=== PATIENT | male | born 1945 | race Caucasian/White ===

== ENCOUNTER → 2016-05-06 | Day surgery (SDC) | payer OTHER, MEDICARE ==
[2016-04-27 15:28] LABS: BASO % 0.6 %; BASO ABS # 0.06 K/uL (0-0.2); COMPLETE YES; EOS % 1.9 %; HEMATOCRIT 47.1 % (42-52); IG% 0.4 %; LYMPH % 31.7 %; MEAN CELL VOLUME 93.6 fL (80-100); MEAN CORPUSCULAR HEMOGLOBIN 31.8 pg (25-34); MEAN PLATELET VOLUME 9.8 fL (7.4-10.4); MONO % 11.9 %; NEUT % 53.5 %; PLATELET COUNT 308 K/uL (130-400); RED BLOOD COUNT 5.03 M/uL (4.7-6.1); WHITE BLOOD COUNT 10.73 K/uL (4.8-10.8)
[2016-04-27 16:08] LABS: BLOOD UREA NITROGEN 10 mg/dl (7-18); CALCIUM 9.4 mg/dl (8.5-10.1); CARBON DIOXIDE 27 mmol/L (21-32); CHLORIDE 103 mmol/L (98-107); CREATININE 0.98 mg/dl (0.60-1.40); GLUCOSE 135 mg/dl (70-99); SODIUM 138 mmol/L (136-145)
[~2016-05-06] VITALS: Ht 177.8 cm; Wt 95.0 kg
[~2016-05-06] MED LIST: ACET-1138 PO; ALBUAER2 INH; ASPI81TA28 PO; CIPROFLOXACIN / D5W 400 MG IV SCH; EpHEDrine SULFATE INJ 50 MG/ML AMP ONE; FENTANYL CITRATE INJ 50 MCG/1 ML 2 ML VIAL IV PRN; FENTANYL CITRATE INJ 50 MCG/1 ML 2 ML VIAL ONE; FLUT0.15 INTNAS; GLC/500 PO; GLIP-197 PO; LACTATED RINGER'S 1000ML 1,000 ML IV PRN; LIDOCAINE HCL 2% 2 ML VIAL (20MG/ML) ONE; LOSA50TA6 PO; MIDAZOLAM HCL 1 MG/ML 2ML VIAL ONE; ONDANSETRON INJ 2 MG/ML 2 ML VIAL IV PRN; ONDANSETRON INJ 2 MG/ML 2 ML VIAL ONE; PRLSR20 PO; PROPOFOL IV EMULSION 10 MG/ML 20 ML VIAL IV ONE; ROSU40TA PO; TAMS0.4C38 PO; WATER, STERILE FOR INJ 10 ML VIAL ONE
[2016-05-06 05:41] VITALS: BP 123/73; PULSE 68; TEMP 36.7; O2SAT 96; Ht 177.8 cm; Wt 95.0 kg
--- NOTE | 2016-05-06 07:15 | History & Physical Bridge Note ---
H&P Re-Evaluation Bridge Note: I have examined the patient, reviewed the History & Physical and in the interval since the performance of the History & Physical I have noted the following changes of clinical significance: No changes noted
--- NOTE | 2016-05-06 08:15 | Discharge Instructions ---
Discharge Instructions Date of Service May 06, 2016. Visit Reason for Visit: Bladder Cancer C67.9 Discharge Discharge Diagnosis / Problem: post op bladder biopsy annd fulguration Discharge Goals Goal(s): Increase independence, Improve disease control, Diagnostic testing Activity Recommendations Activity Limitations: per Instructions/Follow-up section (light activity next 4 weeks) Anesthesia . Post Anesthesia Instructions: If you have had General Anesthesia or IV Sedation: * Do not drive today. * Resume driving when surgeon permits. * Do not make important decisions or sign legal documents today. * Call surgeon for: 1. Temperature elevations greater than 101 degrees F. 2. Uncontrollable pain. 3. Excessive bleeding. 4. Persistent nausea and vomiting. 5. Medication intolerance (nausea, vomiting or rash). * For nausea and vomiting use only clear liquids such as: tea, soda, bouillon until nausea subsides, then gradually increase diet as tolerated. * If you have any concerns or questions, call your surgeon's office. If physician is unavailable and it is an emergency, call 911 or go to the nearest emergency room. . Diet Recommendations Recommended Home Diet: resume previous diet Procedures Procedures Performed: transurethral resection of bladder tumor Pending Studies Studies pending at discharge: no Medical Emergencies . Who to Call and When: Medical Emergencies: If at any time you feel your situation is an emergency, please call 911 immediately. . Non-Emergent Contact Non-Emergency issues call your: Urologist Contact Number: [phone] Call Non-Emergent contact if: temperature is above 101 . . "Provider Documentation" section prepared by Chidi Wing.
--- NOTE | 2016-05-06 08:47 | Anesthesiology Progress Note ---
Anesthesia Post Op Note Date & Time May 06, 2016 at 08:47 Vital Signs Pain Intensity: 0 Vital Signs Past 12 Hours Date Time Temp Pulse Resp B/P Pulse Ox O2 Delivery O2 Flow Rate FiO2 05/06/16 08:40 74 16 112/61 95 Room Air 05/06/16 08:30 71 13 104/62 100 Mask 10 05/06/16 08:20 78 15 108/70 98 Mask 10 05/06/16 08:14 36.3 73 17 107/66 100 Mask 10 05/06/16 05:41 36.7 68 18 123/73 96 Room Air Notes Mental Status: alert / awake / arousable, participated in evaluation Pt Amnestic to Procedure: Yes Nausea / Vomiting: adequately controlled Pain: adequately controlled Airway Patency, RR, SpO2: stable & adequate BP & HR: stable & adequate Hydration State: stable & adequate Anesthetic Complications: no major complications apparent Pt doing well.
[2016-05-06 09:20] VITALS: BP 114/58; PULSE 70; TEMP 36.4; O2SAT 95
[2016-05-06 09:50] VITALS: BP 114/66; PULSE 81; TEMP 36.4; O2SAT 95
--- NOTE | 2016-05-06 12:10 | [facility] Post Operative Brief Note ---
Immediate Operative Summary Operative Date May 06, 2016. Pre-Operative Diagnosis benign prostatic hyperplasia with urinary obstruction, primary transitional cell carcinoma of bladder Post-Operative Diagnosis benign prostatic hyperplasia with urinary obstruction, primary transitional cell carcinoma of bladder Procedure(s) Performed transurethral resection of bladder tumor Surgeon Dr Chidi Wing Back Seam Stitcher Surgeon(s) none Estimated Blood Loss 5ML Specimens A: left anterior lateral wall of bladder papillary B: left anterior lateral wall of bladder red area C: right wall lateral to trigon D: right lateral wall Drains none
--- NOTE | 2016-05-06 23:05 | OPERATIVE REPORT ---
DATE OF OPERATION: 05/06/2016 PREOPERATIVE DIAGNOSIS: Recurrent bladder cancer. POSTOPERATIVE DIAGNOSIS: Same. SURGEON: Dr. Wing. ANESTHESIA: General. PROCEDURE: Cystoscopy, bladder biopsy over medium surface area. HISTORY OF PRESENTATION: The patient is a 71-year-old male with a previous history of bladder cancer that has been ongoing for years. He did have what appeared to be a hole to his bladder that communicated with the perivesical fat and was resected with an open surgery at [facility], who presents now for tumor resection after surveillance cystoscopy in the office. Post the surgery shows several small recurrent tumors. DESCRIPTION OF THE PROCEDURE: The patient was taken to the operating room after he was given preoperative antibiotics and had Venodyne stockings placed, was given general anesthesia, placed in dorsal lithotomy position and prepped and draped in the usual sterile fashion. The 20-Tamazight cystoscope was passed per urethra and once inside the bladder, multiple cup biopsies of the bladder tumors were obtained and all the tumor surface areas were fulgurated and the tumors came from the left anterior lateral wall of the bladder, left anterior lateral wall, trigone area of the bladder, and several smaller areas with papillary tumors were fulgurated without biopsies. Total surface area was 2-3 cm of area fulgurated with tumor. At the end of the procedure, the patient was transferred to the recovery room in stable condition. I attest to the content of the Intraoperative Record and any orders documented therein. Any exceptions are noted below. MTDD
== END | disposition home or self-care (01) ==
LOC: C.ACU 05:12
PROVIDERS: ATTEND Urology
DX: D30.3 Benign neoplasm of bladder (principal); Z85.51 Personal history of malignant neoplasm of bladder; N40.1 Benign prostatic hyperplasia with lower urinary tract symptoms; N13.8 Other obstructive and reflux uropathy; A31.9 Mycobacterial infection, unspecified; I10 Essential (primary) hypertension; N21.0 Calculus in bladder; K22.70 Barrett's esophagus without dysplasia; N30.20 Other chronic cystitis without hematuria; E11.9 Type 2 diabetes mellitus without complications

== ENCOUNTER → 2016-12-23 | Outpatient (CLI) | payer OTHER, MEDICARE ==
[~2016-12-23] MED LIST changes: -CIPROFLOXACIN / D5W 400 MG IV SCH; -EpHEDrine SULFATE INJ 50 MG/ML AMP ONE; -FENTANYL CITRATE INJ 50 MCG/1 ML 2 ML VIAL IV PRN; -FENTANYL CITRATE INJ 50 MCG/1 ML 2 ML VIAL ONE; -LACTATED RINGER'S 1000ML 1,000 ML IV PRN; -LIDOCAINE HCL 2% 2 ML VIAL (20MG/ML) ONE; -MIDAZOLAM HCL 1 MG/ML 2ML VIAL ONE; -ONDANSETRON INJ 2 MG/ML 2 ML VIAL IV PRN; -ONDANSETRON INJ 2 MG/ML 2 ML VIAL ONE; -PROPOFOL IV EMULSION 10 MG/ML 20 ML VIAL IV ONE; -WATER, STERILE FOR INJ 10 ML VIAL ONE
--- NOTE | 2016-12-23 14:12 | DIAGNOSTIC IMAGING REPORT ---
MRI LUMBAR SPINE WITHOUT IV CONTRAST CLINICAL HISTORY: Chronic low back pain. COMPARISON STUDY: Radiographs of the lumbar spine dated 12/15/2016. TECHNIQUE: MRI of the lumbar spine is performed utilizing various T1 and T2-weighted sequences in the axial and sagittal planes. IV contrast was not administered for this examination. FINDINGS: Lumbar spine: Vertebral body height is maintained throughout the lumbar spine. Minimal retrolisthesis is seen at L2-L3 and L3-L4. Alignment is otherwise preserved. There is straightening of the lumbar lordosis. Mild scoliosis is noted. Anterior osteophytes are present throughout. There is no evidence of spondylolysis. The transverse and spinous processes appear intact. No destructive bony lesion is seen. Marrow signal intensity is markedly heterogeneous. Advanced chronic multilevel degenerative endplate change is observed. Intervertebral discs: There is degenerative disc desiccation and loss of height throughout the lumbar spine. Loss of height is moderate to severe from L1 to L2 through L4 to L5. Spinal cord: The partially imaged spinal cord is normal in morphology and signal intensity. The conus medullaris terminates at the level of L2. The nerve roots of the cauda equina are normal in morphology. T12-L1: There is a large posterior disc bulge with annular fissure. In conjunction with hypertrophy of the ligamentum flavum, there is mild to moderate acquired compromise of the central canal at this level. The minimum AP diameter measures 7.5 mm. This is only seen on the sagittal series. L1-L2: There is a posterior disc osteophyte complex. This causes mild central canal stenosis at this level with a minimum AP diameter of 7.5 mm. There is bilateral subarticular stenosis with possible impingement on the exiting bilateral L1 nerve roots. This also abuts the transiting bilateral nerve roots. L2-L3: There is a posterior disc osteophyte complex with annular fissure. There is no significant acquired compromise of the central canal at this level. There is bilateral subarticular stenosis with possible impingement on the exiting bilateral L2 nerve roots. This also abuts the bilateral transiting nerve roots. Facet arthropathy is of no consequence. The neural foramina are clear. L3-L4: A large posterior disc bulge is seen at this level. In conjunction with hypertrophy of the ligamentum flavum, there is moderate central canal stenosis at this level with a minimum AP diameter of 7 mm. There is bilateral subarticular stenosis, with impingement on the exiting bilateral L3 nerve roots. The disc bulge also abuts the bilateral transiting nerve roots. Facet arthropathy is of no consequence. The neural foramina are clear. L4-L5: There is a posterior disc osteophyte complex. There is no significant acquired compromise of the central canal at this level. Facet arthropathy causes mild bilateral neural foraminal stenosis. There is bilateral subarticular stenosis, right greater than left. L5-S1: There is a small posterior disc bulge eccentric to the right with annular fissure. There is only mild acquired compromise of the central canal at this level with a minimum AP diameter of 7.5 mm. There is bilateral subarticular stenosis, right greater than left with possible impingement on the exiting right L5 and transiting right S1 nerve roots. Sacrum: The visualized sacrum is normal in morphology and signal intensity. Soft tissues: There is fatty atrophy of the paraspinous and iliopsoas musculature. Mild ectasia is noted in the abdominal aorta. The bladder wall appears thickened and trabeculated suggesting chronic outlet obstruction. IMPRESSION: 1. Moderate to advanced multilevel lumbosacral spondylosis and scoliosis as above. There is multilevel acquired compromise of the central canal. See discussion for detailed level analysis. 2. Advanced degenerative endplate disease with multilevel degenerative endplate change. 3. No destructive bony lesion is identified. Dictated: 12/23/2016 1:41 PM Transcribed: 12/23/2016 2:11 PM Lc Electronically signed by: Gavin Greco M.D. 12/23/2016 2:23 PM Dictated Date/Time: 12/23/2016 1:41 PM
== END | disposition home or self-care (01) ==
LOC: C.MRIBC 12:36
PROVIDERS: ATTEND Orthopaedic Surgery Orthopaedic Surgery of the Spine
DX: M48.061 Spinal stenosis, lumbar region without neurogenic claudication (principal); M51.26 Other intervertebral disc displacement, lumbar region; M47.896 Other spondylosis, lumbar region; M41.9 Scoliosis, unspecified

== ENCOUNTER → 2017-05-24 | Outpatient (CLI) | payer OTHER, MEDICARE | END | disposition home or self-care (01) | LOC: C.LABSPEC 17:20 | PROVIDERS: ATTEND Urology | DX: R97.20 Elevated prostate specific antigen [PSA] (principal) ==

== ENCOUNTER → 2017-10-18 | Outpatient (CLI) | payer OTHER, MEDICARE | END | disposition home or self-care (01) | LOC: C.PATHSPEC 17:24 | PROVIDERS: ATTEND Urology | DX: C67.9 Malignant neoplasm of bladder, unspecified (principal) ==

== ENCOUNTER 2025-02-06 08:50 | Inpatient (IN) ==
[2025-02-06 09:41] LABS: Hematocrit (blood only) 45.4 % (42.0-52.0); Hemoglobin 15.5 g/dL (14.0-18.0); Immature Granulocytes # (auto) 0.05 K/uL (0.01-0.20); Immature Granulocytes % (auto) 0.4 %; Mean Corpuscular Hemoglobin 34.3 pg (25.0-34.0); Mean Corpuscular Volume 100.4 fL (80.0-100.0); Platelet Count 196 K/uL (130-400); RDW Standard Deviation 59.3 fL (36.4-46.3); Red Blood Count 4.52 M/uL (4.70-6.10); White Blood Count 11.83 K/ul (4.8-10.8)
--- NOTE | 2025-02-06 09:44 | XRay Report ---
SINGLE VIEW CHEST CLINICAL HISTORY: Chest pain FINDINGS: 2 AP, portable, upright chest radiographs are compared to study dated 09/10/2022. Correlatio n is made to abdominal CT dated 12/27/2024. The heart is enlarged. There is pulmonary vascular conges tion. There are asymmetric multifocal bilateral airspace opacities. This could represent pulmonary ed stephanie and/or multifocal pneumonia. This is superimposed on changes of chronic interstitial lung disease . No large pleural effusion or pneumothorax is seen. The skeletal structures are osteopenic. The bony thorax is grossly intact. Arthritic change is seen in the shoulders. Calcific tendinopathy is noted on the right. IMPRESSION: 1. Cardiomegaly with evidence of congestive failure. 2. There are multifocal asymmetric bilateral airspace opacities. This could represent pulmonary edema and/or multifocal pneumonia. Clinical correlation will be required and radiographic follow-up to res olution is recommended. 3. This is superimposed on changes of chronic interstitial lung disease. 4. No large pleural effusion is identified. ACT 112: Negative or not required by law. Electronically signed by: Gavin Greco M.D. 02/06/2025 9:43 AM
[2025-02-06 09:58] LABS: Alanine Aminotransferase 18.0 U/L (7-52); Albumin Globulin Ratio 1.2 (0.9-2); Albumin Level 4.5 gm/dl (3.4-5.0); Alkaline Phosphatase 70.0 U/L (34-104); Anion Gap 13.0 (3-11); Bilirubin,Total 1.3 mg/dl (0.2-1.0); Blood Urea Nitrogen 19.0 mg/dl (6-23); Calcium 9.5 mg/dl (8.6-10.3); Carbon Dioxide 24.0 mmol/L (21-32); Chloride 102.0 mmol/L (98-107); Creatinine Clr Calc Pharmacy 99.7 ml/min; Globulin 3.8 gm/dl (2.5-4.0); Glucose 165.0 mg/dl (70-99(Fasting)); Lipase 8.0 U/L (11-82); Potassium 4.5 mmol/L (3.5-5.1); Sodium 139.0 mmol/L (136-145); Total Protein 8.3 gm/dl (6.0-8.3)
[2025-02-06 10:09] LABS: INR 1.0 (0.9-1.1); Prothrombin Time 10.4 Seconds (9.0-12.0)
--- NOTE | 2025-02-06 10:33 | Emergency Department Note ---
Impression & Plan Acute respiratory failure with hypoxia, Interstitial lung disease, Multifocal pneumonia ED Provider Note NAME: GHADA ALFARO AGE: 79 SEX: M : 1945 ARRIVES VIA: Walk-In INFORMANT: Patient ED PROVIDER(S): Moose Washington MD CHIEF COMPLAINT: Shortness of breath, interstitial lung disease PLAN: Disposition: Admit MEDICAL DECISION MAKING: The patient is a pleasant 79-year-old gentleman with a past medical history of interstitial lung disease, BPH, history of splenectomy who presents to the emergency department via walk-in for evaluation of worsening shortness of breath over the past week where he he has felt body aches but denies fevers. He denies nausea or vomiting. He reports brown productive sputum. On my evaluation the patient is fatigued appearing but no acute distress, afebrile with O2 saturation 88% on room air improving to the mid 90s on nasal cannula, respiratory rate in the upper 20s and 130s heart rate prior to nasal cannula. Vital signs otherwise stable. He appears euvolemic to dry. Lungs with intermittent wheeze of bilateral mid to lower lung diaz. EKG without overt acute ischemia. Chest x-ray demonstrates congestive change where multifocal bilateral airspace opacities are described though asymmetric and so may represent pulmonary edema but also multifocal pneumonia. Superimposed changes of chronic interstitial lung disease are noted. WBC 11.8 K with neutrophilia but no left shift, nonspecific. H/H and plates within normal limits. Chemistry without metabolic acidosis. Lactic acid 1.3, within normal limits. Total bilirubin 1.3, nonspecific LFTs otherwise normal. High-sensitivity troponin 25.4, mildly above normal and nonspecific. BNP 391 without prior values for comparison. Unclear if may have a component of pulmonary hypertension in the setting of the patient's interstitial lung disease. Lipase is not elevated. Procalcitonin is not elevated. UA with 2+ ketones and otherwise no evidence of infection. Given suspicion for component of pneumonia blood cultures obtained empiric treatment initiated with IV ceftriaxone and doxycycline. Additional Solu-Medrol and Xopenex administered for component of bronchospasm in setting of interstitial lung disease. Patient agreed does agree with plan for admission for further management. Case was discussed with Grace Zee PAC with Dr. Shirley, [facility] hospitalist, who will evaluate the patient for admission. Further management per admitting team. Triage Nursing notes reviewed and agree them. Prior/external medical records reviewed Vital Signs: reviewed Differential diagnosis: Reactive airway disease, pneumonia, pneumothorax, COPD, CHF, infections, cardiac ischemia, pulmonary embolism, musculoskeletal, gastrointestinal, as well as other pathologies. ER treatment provided: See below. Diagnostics interpreted by me: ECG: Sinus tachycardia, 127 bpm, right bundle branch block, left anterior fascicular block, no overt ST elevation or depression, QTc 529, QRS 154. Cardiac Monitoring: An order for continuous cardiac monitoring was placed and demonstrated sinus tachycardia, 127 bpm, no ectopy. Laboratory studies: See below Imaging studies: See below Consultation(s): [facility] with Dr. Shirley, [facility] hospitalist, who will evaluate the patient for admission. HPI: Per MDM. ROS: See above HPI for pertinent positives & negatives. A total of 10 systems reviewed and were otherwise negative. VITALS:See Below PHYSICAL EXAMINATION: GENERAL: Awake, alert, fatigued-appearing, in no distress HENT: Normocephalic, atraumatic. Oropharynx with dry mucous membranes and otherwise unremarkable. EYES: Normal conjunctiva. Sclera non-icteric. NECK: Supple. No nuchal rigidity. FROM. No JVD. RESPIRATORY: Wheezes of bilateral lower lung diaz and otherwise clear to auscultation. CARDIAC: Tachycardic rate, normal rhythm. Extremities warm and well perfused. Pulses equal. ABDOMEN: Soft, non-distended. No tenderness to palpation. No rebound or guarding. No masses. MUSCULOSKELETAL: Chest examination reveals no tenderness. The back is symmetrical on inspection without obvious abnormality. There is no CVA tenderness to palpation. No joint edema. LOWER EXTREMITIES: Calves are equal size bilaterally and non-tender. No edema. No discoloration. NEURO: Normal sensorium. No sensory or motor deficits noted. SKIN: No rash or jaundice noted. Moose Washington MD Past Med/Surg History Problem List Severe aortic stenosis Acute diastolic heart failure COPD exacerbation Systolic CHF, acute on chronic Multifocal pneumonia (Acute) Acute respiratory failure with hypoxia (Acute) Diabetes Erectile dysfunction Benign prostatic hyperplasia with urinary obstruction and other lower urinary tract symptoms (Acute) Calculus of kidney and ureter (Acute) Chronic prostatitis (Acute) Elevated PSA (Acute) History of nephrolithiasis (Acute) Primary transitional cell carcinoma of bladder (Acute) Recurrent bladder transitional cell carcinoma (Acute) BPH with obstruction/lower urinary tract symptoms Transitional cell bladder cancer Interstitial lung disease (Acute) Post-operative state Social History Smoking Status: Former smoker Hx Alcohol Use: No Hx Substance Use: No 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 Beliefs That Will Affect Care: None Current Living Situation: Alone Current Living Situation Comment: pt lives alone Feels Safe at Home: Yes Assistive Devices: Glasses Allergies Allergies Allergy/AdvReac Type Severity Reaction Status Date / Time No Known Allergies Allergy Verified 01/26/22 09:59 Home Meds Home Medications Medication Instructions Recorded Confirmed aspirin 81 mg tablet,delayed 81 mg PO DAILY 04/20/18 02/06/25 release metformin 500 mg tablet 1,000 mg PO BID 04/20/18 02/06/25 (Glucophage) rosuvastatin 20 mg tablet (Crestor) 20 mg PO DAILY 04/20/18 02/06/25 Jardiance 10 mg PO DAILY 02/06/25 02/06/25 glipizide 5 mg PO DAILY 02/06/25 02/06/25 losartan 25 mg PO DAILY 02/06/25 02/06/25 omeprazole 20 mg PO DAILY 02/06/25 02/06/25 Previous Rx's Medication Instructions Recorded finasteride 5 mg tablet 5 mg PO DAILY #90 tabs 06/02/21 Results & Data (ED) Vital Signs Vital Signs - 24 hr 02/06/25 08:59 02/06/25 09:10 02/06/25 09:16 Temperature 36.0 C L Temperature Source Skin Pulse Rate 130 H Pulse Rate [Apical] Pulse Rhythm Pulse Rhythm [Apical] Pulse Strength [Apical] Respiratory Rate 28 H Respiratory Effort / Characteristics Non-Labored Spontaneous Non-Labored Spontaneous Respiratory Depth Normal Normal Respiratory Pattern Tachypnea Regular Blood Pressure 131/88 Blood Pressure [Left Arm] Blood Pressure Mean 102 Blood Pressure Mean [Left Arm] Blood Pressure Position [Left Arm] Pulse Oximetry 88 L 88 L Oxygen Delivery Method Room Air Nasal Cannula Nasal Cannula Oxygen Flow Rate 3 0 Sepsis Recent Fever Within 48 Hours No Sepsis New/Unexplained Change in Mental Status N/A Sepsis Action Taken by Nursing No Action Required Oxygen Flow Rate - Titration 3 Pulse Oximetry Post Tiitration 95 02/06/25 09:16 02/06/25 09:16 02/06/25 09:41 Temperature Temperature Source Pulse Rate 128 H 127 H Pulse Rate [Apical] 129 H Pulse Rhythm Regular Pulse Rhythm [Apical] Regular Pulse Strength [Apical] Normal Respiratory Rate 24 27 H Respiratory Effort / Characteristics Non-Labored Spontaneous Respiratory Depth Normal Respiratory Pattern Regular Blood Pressure Blood Pressure [Left Arm] 111/80 Blood Pressure Mean Blood Pressure Mean [Left Arm] 90 Blood Pressure Position [Left Arm] Lying Pulse Oximetry 95 95 Oxygen Delivery Method Nasal Cannula Nasal Cannula Oxygen Flow Rate 3 3 Sepsis Recent Fever Within 48 Hours Sepsis New/Unexplained Change in Mental Status Sepsis Action Taken by Nursing Oxygen Flow Rate - Titration Pulse Oximetry Post Tiitration 02/06/25 11:00 Temperature Temperature Source Pulse Rate Pulse Rate [Apical] 126 H Pulse Rhythm Pulse Rhythm [Apical] Regular Pulse Strength [Apical] Normal Respiratory Rate 21 Respiratory Effort / Characteristics Non-Labored Spontaneous Respiratory Depth Normal Respiratory Pattern Regular Blood Pressure Blood Pressure [Left Arm] 125/81 Blood Pressure Mean Blood Pressure Mean [Left Arm] 95 Blood Pressure Position [Left Arm] Sitting Pulse Oximetry 94 Oxygen Delivery Method Nasal Cannula Oxygen Flow Rate 3 Sepsis Recent Fever Within 48 Hours Sepsis New/Unexplained Change in Mental Status Sepsis Action Taken by Nursing Oxygen Flow Rate - Titration Pulse Oximetry Post Tiitration Laboratory Data Attestation: I reviewed the patient's lab results. 02/06/25 09:15 02/06/25 09:15 Lab Results 02/06/25 02/06/25 02/06/25 Range/Units 09:15 10:49 10:51 WBC 11.83 H (4.8-10.8) K/ul RBC 4.52 L (4.70-6.10) M/uL Hgb 15.5 (14.0-18.0) g/dL Hct 45.4 (42.0-52.0) % MCV 100.4 H (80.0-100.0) fL MCH 34.3 H (25.0-34.0) pg MCHC 34.1 (32.0-36.0) g/dL RDW Std Deviation 59.3 H (36.4-46.3) fL RDW Coeff of Jacqueline 16.0 H (11.5-14.5) % Plt Count 196 (130-400) K/uL MPV 10.3 (9.4-12.4) fL Immature Gran % (Auto) 0.4 % Neut % (Auto) 83.4 % Lymph % (Auto) 7.1 % [place] % (Auto) 8.0 % Eos % (Auto) 0.3 % Baso % (Auto) 0.8 % Neut # (Auto) 9.87 H (1.40-6.50) K/uL Lymph # (Auto) 0.84 L (1.20-3.40) K/uL [place] # (Auto) 0.95 H (0.11-0.59) K/uL Eos # (Auto) 0.03 (0.00-0.50) K/uL Baso # (Auto) 0.09 (0.00-0.20) K/uL Immature Gran # (Auto) 0.05 (0.01-0.20) K/uL ESR 51 H (0-20) mm/hr PT 10.4 (9.0-12.0) Seconds INR 1.0 (0.9-1.1) Sodium 139 (136-145) mmol/L Potassium 4.5 (3.5-5.1) mmol/L Chloride 102 (98-107) mmol/L Carbon Dioxide 24 (21-32) mmol/L Anion Gap 13 H (3-11) BUN 19 (6-23) mg/dl Creatinine 0.73 (0.6-1.4) mg/dl Est Cr Clr Drug Dosing 99.7 ml/min eGFR 93.13 BUN/Creatinine Ratio 26.0 H (10-20) Glucose 165 H (70-99(Fasting)) mg/dl Lactate 1.3 (0.4-2.0) mmol/L Calcium 9.5 (8.6-10.3) mg/dl Magnesium (1.7-2.4) mg/dl Total Bilirubin 1.3 H (0.2-1.0) mg/dl AST 17 (13-39) U/L ALT 18 (7-52) U/L Alkaline Phosphatase 70 (34-104) U/L Troponin I High Sens 25.4 H (0-20) pg/ml C-Reactive Protein (0-0.5) mg/dl B-Natriuretic Peptide 391 H (0-100) pg/ml Total Protein 8.3 (6.0-8.3) gm/dl Albumin 4.5 (3.4-5.0) gm/dl Globulin 3.8 (2.5-4.0) gm/dl Albumin/Globulin Ratio 1.2 (0.9-2) Lipase 8 L (11-82) U/L Procalcitonin 0.04 (0-0.5) ng/ml Urine Color Yellow Urine Appearance Clear (Clear) Urine pH 5.0 (4.5-7.5) Ur Specific [place] 1.036 H (1.000-1.030) Urine Protein 1+ H (Negative) Urine Glucose (UA) 3+ H (Negative) Urine Ketones 2+ H (Negative) Urine Blood Negative (Negative) Urine Nitrite Negative (Negative) Urine Bilirubin Negative (Negative) Urine Urobilinogen Negative (Negative) Ur Leukocyte Esterase Negative (Negative) Urine WBC (Auto) 0-5 (0-5) /hpf Urine RBC (Auto) 0-2 (0-2) /hpf U Hyaline Cast (Auto) 0-2 (0-2) /lpf U Epithel Cells (Auto) 0-2 (0-2) /hpf Urine Bacteria (Auto) None Seen (None Seen) Urine Comment Adenovirus (PCR) (NotDetected) B. pertussis DNA (PCR) (NotDetected) B.parapertussis DNA PCR (NotDetected) C. pneumoniae DNA (PCR) (NotDetected) Coronavirus OC43 (PCR) (NotDetected) Coronavirus HKU1 (PCR) (NotDetected) Coronavirus 229E (PCR) (NotDetected) SARS-CoV-2 (PCR) (Negative) Coronavirus NL63 (PCR) (NotDetected) Human Metapneumovir PCR (NotDetected) Influenza Type A (PCR) (Neg) Influenza Type B (PCR) (Neg) M. pneumoniae (PCR) (NotDetected) Parainfluenza 1 (PCR) (NotDetected) Parainfluenza 2 (PCR) (NotDetected) Parainfluenza 3 (PCR) (NotDetected) Parainfluenza 4 (PCR) (NotDetected) RSV (RT-PCR) (Neg) RSV (PCR) (NotDetected) Entero/Rhino (PCR) (NotDetected) 02/06/25 02/06/25 02/06/25 Range/Units 11:34 11:34 11:34 WBC (4.8-10.8) K/ul RBC (4.70-6.10) M/uL Hgb (14.0-18.0) g/dL Hct (42.0-52.0) % MCV (80.0-100.0) fL MCH (25.0-34.0) pg MCHC (32.0-36.0) g/dL RDW Std Deviation (36.4-46.3) fL RDW Coeff of Jacqueline (11.5-14.5) % Plt Count (130-400) K/uL MPV (9.4-12.4) fL Immature Gran % (Auto) % Neut % (Auto) % Lymph % (Auto) % [place] % (Auto) % Eos % (Auto) % Baso % (Auto) % Neut # (Auto) (1.40-6.50) K/uL Lymph # (Auto) (1.20-3.40) K/uL [place] # (Auto) (0.11-0.59) K/uL Eos # (Auto) (0.00-0.50) K/uL Baso # (Auto) (0.00-0.20) K/uL Immature Gran # (Auto) (0.01-0.20) K/uL ESR (0-20) mm/hr PT (9.0-12.0) Seconds INR (0.9-1.1) Sodium (136-145) mmol/L Potassium (3.5-5.1) mmol/L Chloride (98-107) mmol/L Carbon Dioxide (21-32) mmol/L Anion Gap (3-11) BUN (6-23) mg/dl Creatinine (0.6-1.4) mg/dl Est Cr Clr Drug Dosing ml/min eGFR BUN/Creatinine Ratio (10-20) Glucose (70-99(Fasting)) mg/dl Lactate (0.4-2.0) mmol/L Calcium (8.6-10.3) mg/dl Magnesium (1.7-2.4) mg/dl Total Bilirubin (0.2-1.0) mg/dl AST (13-39) U/L ALT (7-52) U/L Alkaline Phosphatase (34-104) U/L Troponin I High Sens (0-20) pg/ml C-Reactive Protein (0-0.5) mg/dl B-Natriuretic Peptide (0-100) pg/ml Total Protein (6.0-8.3) gm/dl Albumin (3.4-5.0) gm/dl Globulin (2.5-4.0) gm/dl Albumin/Globulin Ratio (0.9-2) Lipase (11-82) U/L Procalcitonin (0-0.5) ng/ml Urine Color Urine Appearance (Clear) Urine pH (4.5-7.5) Ur Specific [place] (1.000-1.030) Urine Protein (Negative) Urine Glucose (UA) (Negative) Urine Ketones (Negative) Urine Blood (Negative) Urine Nitrite (Negative) Urine Bilirubin (Negative) Urine Urobilinogen (Negative) Ur Leukocyte Esterase (Negative) Urine WBC (Auto) (0-5) /hpf Urine RBC (Auto) (0-2) /hpf U Hyaline Cast (Auto) (0-2) /lpf U Epithel Cells (Auto) (0-2) /hpf Urine Bacteria (Auto) (None Seen) Urine Comment Adenovirus (PCR) Not Detected (NotDetected) B. pertussis DNA (PCR) Not Detected (NotDetected) B.parapertussis DNA PCR Not Detected (NotDetected) C. pneumoniae DNA (PCR) Not Detected (NotDetected) Coronavirus OC43 (PCR) Not Detected (NotDetected) Coronavirus HKU1 (PCR) Not Detected (NotDetected) Coronavirus 229E (PCR) Not Detected (NotDetected) SARS-CoV-2 (PCR) NEGATIVE Not Detected (Negative) Coronavirus NL63 (PCR) Not Detected (NotDetected) Human Metapneumovir PCR Not Detected (NotDetected) Influenza Type A (PCR) Negative Not Detected (Neg) Influenza Type B (PCR) Negative (Neg) M. pneumoniae (PCR) (NotDetected) Parainfluenza 1 (PCR) (NotDetected) Parainfluenza 2 (PCR) (NotDetected) Parainfluenza 3 (PCR) (NotDetected) Parainfluenza 4 (PCR) (NotDetected) RSV (RT-PCR) (Neg) RSV (PCR) (NotDetected) Entero/Rhino (PCR) (NotDetected) 02/06/25 02/06/25 Range/Units 11:34 11:44 WBC (4.8-10.8) K/ul RBC (4.70-6.10) M/uL Hgb (14.0-18.0) g/dL Hct (42.0-52.0) % MCV (80.0-100.0) fL MCH (25.0-34.0) pg MCHC (32.0-36.0) g/dL RDW Std Deviation (36.4-46.3) fL RDW Coeff of Jacqueline (11.5-14.5) % Plt Count (130-400) K/uL MPV (9.4-12.4) fL Immature Gran % (Auto) % Neut % (Auto) % Lymph % (Auto) % [place] % (Auto) % Eos % (Auto) % Baso % (Auto) % Neut # (Auto) (1.40-6.50) K/uL Lymph # (Auto) (1.20-3.40) K/uL [place] # (Auto) (0.11-0.59) K/uL Eos # (Auto) (0.00-0.50) K/uL Baso # (Auto) (0.00-0.20) K/uL Immature Gran # (Auto) (0.01-0.20) K/uL ESR (0-20) mm/hr PT (9.0-12.0) Seconds INR (0.9-1.1) Sodium (136-145) mmol/L Potassium (3.5-5.1) mmol/L Chloride (98-107) mmol/L Carbon Dioxide (21-32) mmol/L Anion Gap (3-11) BUN (6-23) mg/dl Creatinine (0.6-1.4) mg/dl Est Cr Clr Drug Dosing ml/min eGFR BUN/Creatinine Ratio (10-20) Glucose (70-99(Fasting)) mg/dl Lactate (0.4-2.0) mmol/L Calcium (8.6-10.3) mg/dl Magnesium 2.0 (1.7-2.4) mg/dl Total Bilirubin (0.2-1.0) mg/dl AST (13-39) U/L ALT (7-52) U/L Alkaline Phosphatase (34-104) U/L Troponin I High Sens 23.6 H (0-20) pg/ml C-Reactive Protein 6.14 H (0-0.5) mg/dl B-Natriuretic Peptide (0-100) pg/ml Total Protein (6.0-8.3) gm/dl Albumin (3.4-5.0) gm/dl Globulin (2.5-4.0) gm/dl Albumin/Globulin Ratio (0.9-2) Lipase (11-82) U/L Procalcitonin (0-0.5) ng/ml Urine Color Urine Appearance (Clear) Urine pH (4.5-7.5) Ur Specific [place] (1.000-1.030) Urine Protein (Negative) Urine Glucose (UA) (Negative) Urine Ketones (Negative) Urine Blood (Negative) Urine Nitrite (Negative) Urine Bilirubin (Negative) Urine Urobilinogen (Negative) Ur Leukocyte Esterase (Negative) Urine WBC (Auto) (0-5) /hpf Urine RBC (Auto) (0-2) /hpf U Hyaline Cast (Auto) (0-2) /lpf U Epithel Cells (Auto) (0-2) /hpf Urine Bacteria (Auto) (None Seen) Urine Comment Adenovirus (PCR) (NotDetected) B. pertussis DNA (PCR) (NotDetected) B.parapertussis DNA PCR (NotDetected) C. pneumoniae DNA (PCR) (NotDetected) Coronavirus OC43 (PCR) (NotDetected) Coronavirus HKU1 (PCR) (NotDetected) Coronavirus 229E (PCR) (NotDetected) SARS-CoV-2 (PCR) (Negative) Coronavirus NL63 (PCR) (NotDetected) Human Metapneumovir PCR (NotDetected) Influenza Type A (PCR) (Neg) Influenza Type B (PCR) Not Detected (Neg) M. pneumoniae (PCR) Not Detected (NotDetected) Parainfluenza 1 (PCR) Not Detected (NotDetected) Parainfluenza 2 (PCR) Not Detected (NotDetected) Parainfluenza 3 (PCR) Not Detected (NotDetected) Parainfluenza 4 (PCR) Not Detected (NotDetected) RSV (RT-PCR) Negative (Neg) RSV (PCR) Not Detected (NotDetected) Entero/Rhino (PCR) Not Detected (NotDetected) Administered Medications Doxycycline Hyclate (Doxycycline Hyclate 100 Mg Cap) 100 mg PO BID [facility] Stop: 02/11/25 20:59 Last Admin: 02/06/25 20:32 Dose: 100 mg Documented By: JOYCE Enoxaparin Sodium (Enoxaparin Inj 40 Mg/0.4 Ml Syr) 40 mg SQ Q24H [facility] Stop: 03/08/25 18:59 Last Admin: 02/06/25 20:32 Dose: 40 mg Documented By: JOYCE Guaifenesin (Guaifenesin 600 Mg Tabcr) 1,200 mg PO Q12 [facility] Stop: 03/08/25 20:59 Last Admin: 02/06/25 20:32 Dose: 1,200 mg Documented By: JOYCE Cefepime HCl (Maxipime 2000mg) 2,000 mg in 20 mls @ 5 mls/min IV Q8H [facility]; Protocol Stop: 02/11/25 18:29 Last Admin: 02/06/25 20:32 Dose: 5 mls/min Documented By: JOYCE Insulin Aspart (Insulin Aspart Per Unit Charge) 0 units SC ACHS [facility] Stop: 03/08/25 12:59 Last Admin: 02/06/25 20:46 Dose: 4 units Documented By: JOYCE Co-signed By: MIGUEL Admin: 02/06/25 18:58 Dose: Not Given Documented By: Admin: 02/06/25 16:38 Dose: 6 units Documented By: AHSAN Co-signed By: MORE Ipratropium [place] (Ipratropium [place] Neb Soln 0.02% 0.5mg/2.5ml Vial) 0.5 mg NEB Q6R [facility] Stop: 03/08/25 16:59 Last Admin: 02/06/25 20:41 Dose: 0.5 mg Documented By: tb Admin: 02/06/25 16:45 Dose: 0.5 mg Documented By: ADRIÁN Levalbuterol HCl (Levalbuterol 1.25 Mg/3 Ml Neb) 1.25 mg NEB Q6R [facility] Stop: 03/08/25 16:59 Last Admin: 02/06/25 20:41 Dose: 1.25 mg Documented By: chay Admin: 02/06/25 16:45 Dose: 1.25 mg Documented By: ADRIÁN Metoprolol Tartrate (Metoprolol Tartrate 25 Mg Tab) 12.5 mg PO BID [facility] Stop: 03/08/25 23:29 Last Admin: 02/07/25 00:01 Dose: 12.5 mg Documented By: JOYCE Discontinued Medications Furosemide (Furosemide Inj 20 Mg/2 Ml Vial) 20 mg IV ONE ONE Stop: 02/06/25 12:50 Last Admin: 02/06/25 13:15 Dose: 20 mg Documented By: ROXANA Guaifenesin (Guaifenesin 600 Mg Tabcr) 600 mg PO NOW STA Stop: 02/06/25 11:15 Last Admin: 02/06/25 11:26 Dose: 600 mg Documented By: ROXANA Guaifenesin (Guaifenesin 600 Mg Tabcr) 1,200 mg PO ONE ONE Stop: 02/06/25 12:31 Last Admin: 02/06/25 12:49 Dose: Not Given Documented By: JESIKA Ceftriaxone Sodium (Rocephin) 2,000 mg in 50 mls @ 100 mls/hr IV NOW STA Stop: 02/06/25 11:43 Last Infusion: 02/06/25 11:54 Dose: Infused Documented By: Admin: 02/06/25 11:27 Dose: 100 mls/hr Documented By: ROXANA Doxycycline Hyclate (Vibramycin) 100 mg in 100 mls @ 50 mls/hr IV NOW STA Stop: 02/06/25 13:13 Last Infusion: 02/06/25 14:14 Dose: Infused Documented By: Admin: 02/06/25 11:51 Dose: 50 mls/hr Documented By: ROXANA Insulin Glargine (Lantus Per Unit Charge) 10 units SC NOW ONE Stop: 02/06/25 13:46 Last Admin: 02/06/25 13:56 Dose: 10 units Documented By: ROXANA Co-signed By: JESIKA Levalbuterol HCl (Levalbuterol Hcl 0.63 Mg/3 Ml Neb) 0.63 mg NEB NOW STA; Protocol Stop: 02/06/25 11:15 Last Admin: 02/06/25 11:31 Dose: 0.63 mg Documented By: ROXANA Methylprednisolone (Methylprednisolone 125 Mg/2 Ml Vial) 60 mg IV NOW STA Stop: 02/06/25 11:15 Last Admin: 02/06/25 11:27 Dose: 60 mg Documented By: ROXANA Imaging Data Radiologist's Impression: Chest X-Ray 02/06/25 09:06 SINGLE VIEW CHEST CLINICAL HISTORY: Chest pain FINDINGS: 2 AP, portable, upright chest radiographs are compared to study dated 09/10/2022. Correlation is made to abdominal CT dated 12/27/2024. The heart is enlarged. There is pulmonary vascular congestion. There are asymmetric multifocal bilateral airspace opacities. This could represent pulmonary edema and/or multifocal pneumonia. This is superimposed on changes of chronic interstitial lung disease. No large pleural effusion or pneumothorax is seen. The skeletal structures are osteopenic. The bony thorax is grossly intact. Arthritic change is seen in the shoulders. Calcific tendinopathy is noted on the right. IMPRESSION: 1. Cardiomegaly with evidence of congestive failure. 2. There are multifocal asymmetric bilateral airspace opacities. This could represent pulmonary edema and/or multifocal pneumonia. Clinical correlation will be required and radiographic follow-up to resolution is recommended. 3. This is superimposed on changes of chronic interstitial lung disease. 4. No large pleural effusion is identified. ACT 112: Negative or not required by law. Electronically signed by: Gavin Greco M.D. 02/06/2025 9:43 AM Discharge Plan Visit Data Chief Complaint: Respiratory Problems Stated Complaint: SOB, CHEST PAIN ED Provider: Moose Washington Discharge Problem: Acute respiratory failure with hypoxia, Interstitial lung disease, Multifocal pneumonia Patient Disposition: Admitted As Inpatient Condition: Fair Discharge Instructions Interventions: ED Discharge Assessment Last Done: 02/06/25 17:55
[2025-02-06 11:17] LABS: Appearance Urine Clear (Clear); Bacteria Urine Automated None Seen (None Seen); Cast Urine Automated 0-2 /lpf (0-2); Epithelial Cell Urine Auto 0-2 /hpf (0-2); Glucose Urine UA 3+ (Negative); RBC Urine Automated 0-2 /hpf (0-2); WBC Urine Automated 0-5 /hpf (0-5)
[2025-02-06] MEDS: guaiFENesin 600 MG TABCR PO STA (11:26)
[2025-02-06] MEDS: cefTRIAXone SODIUM 2,000 MG/50 ML BAG IV STA (11:27)
[2025-02-06] MEDS: LEVALBUTEROL HCL 0.63 MG/3 ML NEB NEB STA (11:31)
[2025-02-06] MEDS ORDERED: GLUCOSE 40% GEL 15 GM TUBE PO PRN (12:03)
[2025-02-06] MEDS ORDERED: PHARMACY GLYCEMIC MGMT CONSULT PRN (12:03)
[2025-02-06] MEDS ORDERED: GLUCOSE 10 TAB/TUBE PO PRN (12:03)
[2025-02-06] MEDS ORDERED: CARBOHYDRATES FOR HYPOGLYCEMIA PO PRN (12:03)
[2025-02-06] MEDS ORDERED: GLUCAGON FOR INJ 1 MG VIAL SQ PRN (12:03)
[2025-02-06] MEDS ORDERED: DEXTROSE 50% 50 ML SYRINGE IV PRN (12:03)
[2025-02-06] MEDS ORDERED: IPRATROPIUM BROMIDE NEB SOLN 0.02% 0.5MG/2.5ML VIAL NEB ONE (12:30)
[2025-02-06 12:32] LABS: Influenza A virus by PCR Negative (Neg); Influenza B virus by PCR Negative (Neg); SARS CoV2 RNA(COVID-19) Ceph NEGATIVE (Negative)
[2025-02-06] MEDS: guaiFENesin 600 MG TABCR PO ONE (12:49)
[2025-02-06 12:57] LABS: Base Excess VBG 1.2 mEq/L; HCO3 VBG 26 mmol/L; Oxygen Saturation VBG 67.7 %; PCO2 VBG 41 mmHg (38-50); PO2 VBG 39 mmHg; pH VBG 7.41 (7.36-7.41)
[2025-02-06] MEDS: FUROSEMIDE INJ 20 MG/2 ML VIAL IV ONE (13:15)
--- NOTE | 2025-02-06 13:22 | History & Physical Report ---
Date of Service February 06, 2025 Assessment & Plan (1) Acute respiratory failure with hypoxia: (2) Multifocal pneumonia: (3) Systolic CHF, acute on chronic: (4) COPD exacerbation: Plan: 79-year-old male with history of splenectomy, COPD, interstitial lung disease, congestive heart failure systolic type, diabetes type 2, hypertension, AAA, bladder cancer, BPH, other problems noted below presenting with shortness of breath with productive cough timesx 1 week. Acute hypoxic respiratory failure secondary to multifocal pneumonia in the setting of interstitial lung disease, with COPD possible component of congestive heart failure acute on chronic systolic type currently on 3 L of O2 via nasal cannula, patient not on oxygen supplement at home chest x-ray: Positive for multifocal pneumonia with CHF pattern CT chest: Ordered nasal swab for flu, COVID: Negative Sputum culture: Ordered Blood culture: Pending Nasal swab for MRSA: Pending VBG: Ordered Start cefepime plus doxycycline Xopenex plus Atrovent every 6 hours Solu-Medrol 40 mg every 8 hours Mucinex twice daily Incentive parameter, flutter valve Pulmonary service consultation BNP elevated at 300s Echocardiogram ordered Lasix 20 mg IV ordered Mild troponin elevation 25, second set pending No chest pain EKG no signs of ischemia or infarct Likely secondary to #1 History of splenectomy Antibiotic coverage per above other chronic medical problems: Diabetes type 2-hold metformin, Jardiance, glipizide; insulin sliding scale and pharmacy glycemic control ordered as patient is currently on IV Solu-Medrol Hypertension- continue amlodipine, losartan AAA-continue rosuvastatin, aspirin BPH-continue finasteride Bladder cancer- recent diagnosis, follows with not with any physicians group urology service, plan for BCG treatment next week GERD- Continue omeprazole Osteoporosis, osteoarthritis DVT prophylaxis Lovenox SC daily CODE STATUS Full code as per patient Disposition Admit to PCU Total time spent 60 minutes including discussion with ER provider, review of outpatient and ER chart, history and physical exam, formulation of plan of care, etc. plan of care discussed with patient in detail and at length all questions answered he is understanding, agreeable, comfortable with the plan of care History of Present Illness Chief Complaint: Shortness of breath or productive cough x 1 week Primary Care Provider: Van Pang DO 79-year-old male with history of splenectomy, COPD, interstitial lung disease, congestive heart failure systolic type, diabetes type 2, hypertension, AAA, bladder cancer, BPH, other problems noted below presenting with shortness of breath with productive cough timesx 1 week. Patient follows with a simonizer at the [facility] for COPD and interstitial lung disease. He also follows with under the urology service for a recently diagnosed bladder cancer with plans for BCG treatment next week. As per patient, he has had shortness of breath and productive cough which worsened last week. Denies fevers or chills, sore throat, body aches, chest pain. Shortness of breath that worsened over the past few days to the point that he has been having difficulty walking around his home. At the ER, blood pressure was 131/88, heart rate 130, respiratory 28, 88% on room air, improving to 95% on 3 L by nasal cannula. Patient was noted to have bilateral wheezing, chest x-ray showed multifocal pneumonia with possible CHF pattern. He received Solu-Medrol IV,Neb treatment, ceftriaxone plus doxycycline at the ER. On exam, patient seen sitting up in bed, not in distress on 3 L of O2 via nasal cannula. States breathing has been somewhat improved since admission to the ER. Denies active shortness of breath, chest pain, nausea vomiting, fevers chills, or any other symptoms. Allergies Allergy/AdvReac Type Severity Reaction Status Date / Time No Known Allergies Allergy Verified 01/26/22 09:59 Home Medications Medication Instructions Recorded Confirmed Type albuterol sulfate 90 mcg/actuation 2 inha inhalation Q6H PRN 04/20/18 03/22/23 Rx aerosol inhaler shortness of breath or wheezing #6.7 grams aspirin 81 mg tablet,delayed 81 mg PO DAILY 04/20/18 03/22/23 History release benzonatate 100 mg capsule 100 mg PO TID PRN cough #15 caps 04/20/18 03/22/23 Rx (Tessalon Perles) lisinopril 20 mg tablet 20 mg PO DAILY 04/20/18 03/22/23 History metformin 500 mg tablet 500 mg PO BID 04/20/18 03/22/23 History (Glucophage) rosuvastatin 20 mg tablet (Crestor) 20 mg PO DAILY 04/20/18 03/22/23 History tamsulosin 0.4 mg capsule 0.4 mg PO DAILY 04/20/18 03/22/23 History ciprofloxacin HCl 500 mg tablet 500 mg PO BID #14 tabs 05/20/20 03/22/23 Rx finasteride 5 mg tablet 5 mg PO DAILY #90 tabs 06/02/21 03/22/23 Rx sildenafil (pulm.hypertension) 20 See Rx Instructions PO ONCE PRN 09/28/21 03/22/23 Rx mg tablet sexual activity #20 tabs nystatin 100,000 unit/gram topical 1 applic topical DAILY #30 grams 09/17/24 Rx powder fluconazole 100 mg tablet 100 mg PO DAILY #5 tabs 10/26/24 Rx Past Med/Surg History Problem List COPD exacerbation Systolic CHF, acute on chronic Multifocal pneumonia Acute respiratory failure with hypoxia Diabetes Erectile dysfunction Benign prostatic hyperplasia with urinary obstruction and other lower urinary tract symptoms (Acute) Calculus of kidney and ureter (Acute) Chronic prostatitis (Acute) Elevated PSA (Acute) History of nephrolithiasis (Acute) Primary transitional cell carcinoma of bladder (Acute) Recurrent bladder transitional cell carcinoma (Acute) BPH with obstruction/lower urinary tract symptoms Transitional cell bladder cancer Interstitial lung disease Post-operative state Social History Smoking Status: Never smoker Current Living Situation: Family Feels Safe at Home: Yes Review of Systems Review of Systems: all noted and negative except for above Physical Exam Physical Exam: General- oriented x 3, not in distress, speaks in sentences with no effort or accessory muscle use Head- atraumatic Eyes- PERRL, EOMI, anicteric ENT- oropharynx clear Neck- supple, (+) mild JVD, no adenopathy, no thyromegaly; carotids +2/2, no bruits appreciated Lungs- positive positive somewhat diminished breath sounds bilaterally, no active wheezing or crackles Heart- mild tachycardia, regular rhythm; no murmur, no gallop, no rub appreciated Abdomen- normal bowel sounds, nondistended, soft, nontender, no masses or hepatosplenomegaly Extremities- mild lower extremity edema, no calf tenderness; peripheral pulses intact Neuro- alert, oriented x 3; CN 2-12 grossly intact; motor 5/5 bilaterally;sensation 100% on all extremities; no other gross focal neurologic deficits Skin- warm & dry Results & Data Results & Data Vital Signs (Past 12 Hours) Vital Signs Temp Pulse Pulse Resp BP BP Pulse Ox 02/06/25 11:00 126 H 21 125/81 94 02/06/25 09:41 127 H 02/06/25 09:16 128 H 27 H 95 02/06/25 09:16 129 H 24 111/80 95 02/06/25 09:16 88 L 02/06/25 09:10 02/06/25 08:59 36.0 C L 130 H 28 H 131/88 88 L O2 Del Method O2 Flow Rate 02/06/25 11:00 Nasal Cannula 3 02/06/25 09:41 02/06/25 09:16 Nasal Cannula 3 02/06/25 09:16 Nasal Cannula 3 02/06/25 09:16 Nasal Cannula 0 02/06/25 09:10 Nasal Cannula 3 02/06/25 08:59 Room Air all noted and reviewed including below Code Status & VTE Plan VTE Prophylaxis Plan VTE Prophylaxis will be ordered: Yes
--- NOTE | 2025-02-06 13:51 | Pharmacy Report ---
Pharmacy Glycemic Short Note 2 - Date of Service February 06, 2025 - Glycemic Short BSG Results (Last 24 hours): 02/06/25 02/06/25 09:15 13:20 Glucose 165 H POC Glucose 163 H OUTPATIENT ANTIDIABETIC REGIMEN: * metformin 500mg PO BID HbA1C: ___ ASSESSMENT: * Pt is a 79 YOM admitted with acute respiratory failure and COPD exacerbation. History of DM2 on metformin at home. Pharmacy consulted to assist with inpatient glycemic management. BSGs 165-163mg/dL since admission. * Received methylprednisolone 60mg IV X 1 and ordered 40mg IV q8h ongoing. Receiving antibiotics. * Will initiate basal with Lantus 10 units SQ X 1 dose given q8h steroids and baseline BSG >160mg/dl. Reassess basal in AM. Novolog moderate stress scale ACHS. PLAN FOR INPATIENT GLYCEMIC CONTROL: * Hold outpatient oral diabetes medications * Basal insulin * Lantus 10 units SQ X1 * Bolus insulin * NovoLog per scale ACHS or Q6hrs while NPO * Goal Range: Low 110 mg/dL - High 140 mg/dL * Correction Factor: 20 mg/dL/unit * Nutritional / Prandial insulin per carb ratio of 1 unit per 9 grams CHO consumed
[2025-02-06] MEDS: LANTUS PER UNIT CHARGE SC ONE (13:56)
--- NOTE | 2025-02-06 15:17 | Pulmonary Consultation ---
Date of Consultation February 06, 2025 Assessment & Plan (1) Acute diastolic heart failure: I suspect the patient is experiencing an acute diastolic heart failure exacerbation related to aortic stenosis on top of a history of interstitial lung disease. I am somewhat doubtful that he is having an ILD flare, but will check ESR and CRP. Agree with judicious use of IV diuretics. Obtain echocardiogram. Trend BNP and daily weights. Repeat chest x-ray tomorrow. Once volume status on x-ray improves, we will pursue an HRCT. (2) Acute respiratory failure with hypoxia: Likely secondary to CHF superimposed on ILD. I suspect he likely has a history of chronic hypoxemia which has come to light during this acute hospitalization. (3) Severe aortic stenosis: Obtain echocardiogram. Patient's daughter notes that he was worked up for TAVR and is on the border for needing a TAVR at this time. (4) Interstitial lung disease: He has an ill-defined ILD based on the pulmonary notes and CT chest reports from the [facility] at [facility]. What was noted includes punctate granulomas, ill-defined opacities and lower lobe bronchiectasis. Traction bronchiectasis, subpleural reticulations and honeycombing was not mentioned. 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 Please obtain the images of CT chest reports from the [facility] and from [facility] and upload them into our PACS system. Will pursue an HRCT chest once he is more euvolemic to get a better sense of his parenchymal and airway architecture. 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 He also has a history of high normal calcium levels despite a normal GAYE level. His connective tissue disorder workup was largely unremarkable. Will obtain a CRP and ESR as above. Will obtain a complete respiratory BioFire panel and a urine Legionella antigen as well. Okay to continue empiric antibiotics for the time being. Will hold on IV methylprednisone or oral prednisone at this time. MRSA screen was negative. Pro-Woody was negative. Unclear whether we are truly dealing with a bacterial infection at this time. The presence of lymphopenia would suggest potential viral infection. Plan I personally spent 70 minutes on the date of service in activities related to this patient's encounter, including 40minutes of counseling with patient regarding treatment plan and 30 minutes of clinical review of lab results and documentation. I did camp head counselor the patient regarding their diagnosis and treatment plan and they expressed understanding. This note was dictated using voice recognition software and may include grammatical errors, extra words, word substitutions and other inaccuracies due to errors in the voice recognition software and differences in speech patterns. History of Present Illness Reason for Consultation: "Hypoxic respiratory failure, PNA, ILD" History of Present Illness 79-year-old male with a history of nonobstructive coronary artery disease, severe aortic stenosis, prior history of systolic heart failure with his latest EF being 52%, splenectomy, transitional cell carcinoma of the bladder, BPH and longstanding interstitial lung disease who is presenting to the hospital due to significantly increased shortness of breath over the past week. He denies any syncope or presyncopal symptoms. He denies any lower extremity edema. He denies any orthopnea. Patient's daughter is present who is a nurse practitioner at [facility]. The patient indicates that he has had interstitial lung disease for the last 4 years that he is aware of and has [facility]. He had a connective tissue disorder workup which I was able to review through his [employer] on his iPad with labs including CCP IgG antibodies, ALEJA, CK, Brittanie 1 antibody, aldolase, rheumatoid factor which were all negative in 2021. Mitochondrial antibody was positive. Patient had PFTs, but I was unable to review those studies. He had a history of an HRCT which revealed bronchiectasis in the lower lobe further radiologic interpretation. No honeycombing is identified. Time is not able to personally review the images. There is also mention of punctate granulomas. Patient notes that he has a history of tobacco abuse and a history of deployment to [place]. Otherwise he denies any significant occupational exposure histories. 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 He has a oil heating at home. He has no pets. No farming history. No history of burning coal or wood-burning in his home. He does endorse occasional dysphagia and dry mouth. He denies any significant dry eyes. He does endorse joint aches and stiffness in his hands in the mornings. He has never been evaluated by a agricultural labor camp manager. He denies any history of bronchoscopy or lung biopsies. He is not on home oxygen. He notes that he was on a trial of steroids for 6 months a couple years ago through [employer] without any improvement in his respiratory symptoms. He has not been on any antifibrotic's or other immunosuppressive medications. His BNP is mildly elevated today. He received a dose of methylprednisolone and Lasix in the ER. His white count is mildly elevated to 11,800. He has mild lymphopenia. His eosinophil count is 30. MRSA screen was negative. CBC and v iral panel including COVID, influenza and RSV were negative. EKG revealing right bundle branch block and left anterior ventricular block. No ischemic changes. Allergies Allergy/AdvReac Type Severity Reaction Status Date / Time No Known Allergies Allergy Verified 01/26/22 09:59 Home Medications Medication Instructions Recorded Confirmed Type aspirin 81 mg tablet,delayed 81 mg PO DAILY 04/20/18 02/06/25 History release metformin 500 mg tablet 1,000 mg PO BID 04/20/18 02/06/25 History (Glucophage) rosuvastatin 20 mg tablet (Crestor) 20 mg PO DAILY 04/20/18 02/06/25 History finasteride 5 mg tablet 5 mg PO DAILY #90 tabs 06/02/21 02/06/25 Rx Jardiance 10 mg PO DAILY 02/06/25 02/06/25 History glipizide 5 mg PO DAILY 02/06/25 02/06/25 History losartan 25 mg PO DAILY 02/06/25 02/06/25 History omeprazole 20 mg PO DAILY 02/06/25 02/06/25 History Patient History Social History Smoking Status: Never smoker Current Living Situation: Family Feels Safe at Home: Yes Review of Systems Review of Systems: All systems reviewed & are unremarkable except as noted in HPI & below Physical Exam Physical Exam: Constitutional: Patient appears to be of their stated age. Patient is in no apparent distress. Patient is well-developed. Eyes: Pupils are equal round and reactive to light. Conjunctivae are normal. Anicteric sclera. Ears nose, mouth and throat: Mallampati class 2. Normal posterior oropharynx. Uvula is midline. Neck: Trachea is midline. Visual inspection is normal. Respiratory: Mild bilateral crackles. Mild tachypnea. Conversational dyspnea. Cardiovascular: Tachycardic. 2 out of 6 systolic flow murmur. No edema. Gastrointestinal: Normal bowel sounds, soft, nontender and nondistended. No hepatosplenomegaly noted. Musculoskeletal: No cyanosis. Patient is able to move all extremities. Strength is 5 out of 5 in the upper and lower extremities. Skin: No rashes, warm dry and intact. Neurologic: No obvious focal neurological deficits seen. Psychiatric: Alert and oriented x3 with a euthymic affect. Results & Data Results & Data Vital Signs (Past 12 Hours) Vital Signs Temp Pulse Pulse Resp BP BP Pulse Ox 02/06/25 13:31 125 H 30 H 132/94 93 02/06/25 13:19 124 H 02/06/25 11:00 126 H 21 125/81 94 02/06/25 09:41 127 H 02/06/25 09:16 128 H 27 H 95 02/06/25 09:16 129 H 24 111/80 95 02/06/25 09:16 88 L 02/06/25 09:10 02/06/25 08:59 36.0 C L 130 H 28 H 131/88 88 L O2 Del Method O2 Flow Rate 02/06/25 13:31 Nasal Cannula 3 02/06/25 13:19 02/06/25 11:00 Nasal Cannula 3 02/06/25 09:41 02/06/25 09:16 Nasal Cannula 3 02/06/25 09:16 Nasal Cannula 3 02/06/25 09:16 Nasal Cannula 0 02/06/25 09:10 Nasal Cannula 3 02/06/25 08:59 Room Air PG Care Time/CCT Total # of Minutes Spent Total Time Spent with Patient: Total time spent is greater than 50% in coordination of care (as documented) at patient's floor/unit and/or counseling patient: Coding Level of Care Code 31819 INT INP/OBS CARE 3/75MIN Diagnoses Acute diastolic heart failure I50.31 Acute respiratory failure with hypoxia J96.01 Severe aortic stenosis I35.0 Interstitial lung disease J84.9
--- NOTE | 2025-02-06 16:13 | XCELERA ---
[id number]
[2025-02-06] MEDS: INSULIN ASPART PER UNIT CHARGE SC SCH (16:38)
[2025-02-06] MEDS: LEVALBUTEROL 1.25 MG/3 ML NEB NEB SCH (16:45)
[2025-02-06] MEDS: IPRATROPIUM BROMIDE NEB SOLN 0.02% 0.5MG/2.5ML VIAL NEB SCH (16:45)
[2025-02-06 17:36] LABS: Chlamydia pneumoniae PCR Not Detected (NotDetected); Coronavirus 229E PCR Not Detected (NotDetected); Coronavirus CoV-2 (COVID19)PCR Not Detected (NotDetected); Coronavirus HKU1 PCR Not Detected (NotDetected); Coronavirus NL63 PCR Not Detected (NotDetected); Coronavirus OC43PCR Not Detected (NotDetected); Human Metapneumovirus PCR Not Detected (NotDetected); Parainfluenza Virus 1 PCR Not Detected (NotDetected); Parainfluenza Virus 2 PCR Not Detected (NotDetected); Parainfluenza Virus 3 PCR Not Detected (NotDetected); Parainfluenza Virus 4 PCR Not Detected (NotDetected); Respiratory Syncytial VirusPCR Not Detected (NotDetected); Rhinovirus/Enterovirus PCR Not Detected (NotDetected)
[2025-02-06] MEDS ORDERED: ACETAMINOPHEN 325 MG TAB PO PRN (18:13)
[2025-02-06] MEDS: CEFEPIME 2000MG 2,000 MG/20 ML SYR IV SCH (20:32)
[2025-02-06] MEDS: ENOXAPARIN INJ 40 MG/0.4 ML SYR SQ SCH (20:32)
[2025-02-06] MEDS: guaiFENesin 600 MG TABCR PO SCH (20:32)
[2025-02-06] MEDS: DOXYCYCLINE HYCLATE 100 MG CAP PO SCH (20:32)
--- NOTE | 2025-02-06 23:29 | Communication Note ---
Date of Service: February 06, 2025 Patient persistently tachycardic since admission. Heart rate 1 10-1 30s. SBP 120s. Sinus tachycardia on the monitor. Patient comfortable as per RN. AP Persistent tachycardia Acute systolic heart failure Initiate low-dose beta-yenni for now
[2025-02-07] MEDS: METOPROLOL TARTRATE 25 MG TAB PO SCH (00:01)
[2025-02-07 00:06] LABS: Magnesium 2.0 mg/dl (1.7-2.4)
[2025-02-07 06:40] LABS: Hematocrit (blood only) 41.5 % (42.0-52.0); Hemoglobin 13.7 g/dL (14.0-18.0); Immature Granulocytes # (auto) 0.03 K/uL (0.01-0.20); Immature Granulocytes % (auto) 0.5 %; Mean Corpuscular Hemoglobin 32.9 pg (25.0-34.0); Mean Corpuscular Volume 99.8 fL (80.0-100.0); Platelet Count 177 K/uL (130-400); RDW Standard Deviation 58.7 fL (36.4-46.3); Red Blood Count 4.16 M/uL (4.70-6.10); White Blood Count 6.08 K/ul (4.8-10.8)
[2025-02-07 07:30] LABS: Alanine Aminotransferase 14.0 U/L (7-52); Albumin Globulin Ratio 1.2 (0.9-2); Albumin Level 3.9 gm/dl (3.4-5.0); Alkaline Phosphatase 55.0 U/L (34-104); Anion Gap 10.0 (3-11); Bilirubin,Total 0.8 mg/dl (0.2-1.0); Blood Urea Nitrogen 23.0 mg/dl (6-23); Calcium 9.3 mg/dl (8.6-10.3); Carbon Dioxide 26.0 mmol/L (21-32); Chloride 104.0 mmol/L (98-107); Creatinine Clr Calc Pharmacy 96.6 ml/min; Globulin 3.2 gm/dl (2.5-4.0); Glucose 145.0 mg/dl (70-99(Fasting)); Magnesium 2.1 mg/dl (1.7-2.4); Potassium 4.5 mmol/L (3.5-5.1); Sodium 140.0 mmol/L (136-145); Total Protein 7.1 gm/dl (6.0-8.3)
[2025-02-07 07:33] LABS: Hemoglobin A1C 6.9 % (4.5-5.6)
--- NOTE | 2025-02-07 08:27 | XRay Report ---
EXAM: XR chest 1V portable CLINICAL HISTORY: chf TECHNIQUE: An X-ray image of the chest is obtained in AP projection. COMPARISON: compared to previous study done at 09/10/2022. FINDINGS: Pulmonary Parenchyma: Progression of the previously seen diffuse non homogeneous parenchyma with prominent bronchovascular markings. No pleural effusion/thickening. Heart and Mediastinum: Stable cardiomegaly and prominent aortic arch. No mediastinal widening or masses. No hilar or mediastinal lymphadenopathy. Bony Thorax: Bony thorax appears intact without fractures or deformities. Soft Tissues: Soft tissues overlying the chest wall are unremarkable. IMPRESSION: 1. Stable cardiomegaly. 2. Overall findings are of pulmonary edema (progressive), clinical correlation and follow up is recommnded. Electronically signed by Walker Martin 02-07-2025 08:26 AM
[2025-02-07] MEDS: ROSUVASTATIN CALCIUM 20 MG TAB PO SCH (08:38)
[2025-02-07] MEDS: FINASTERIDE 5 MG TAB PO SCH (08:38)
[2025-02-07] MEDS: LOSARTAN POTASSIUM 25 MG TAB PO SCH (08:39)
[2025-02-07] MEDS: ASPIRIN 81 MG ECTAB PO SCH (08:39)
[2025-02-07] MEDS ORDERED: LANTUS PER UNIT CHARGE SC SCH (09:00)
[2025-02-07] MEDS: FUROSEMIDE 40 MG/4 ML VIAL IV ONE (09:26)
--- NOTE | 2025-02-07 10:51 | Electrocardiogram Report ---
Test Reason : Blood Pressure : */* mmHG Vent. Rate : 128 BPM Atrial Rate : 128 BPM P-R Int : 144 ms QRS Dur : 158 ms QT Int : 356 ms P-R-T Axes : 82 -61 18 degrees QTcB Int : 519 ms Sinus tachycardia Right bundle branch block Left anterior fascicular block Bifascicular block Abnormal ECG When compared with ECG of 06-Feb-2025 09:24, (unconfirmed) No significant change Confirmed by Chidi Agudelo ([id number]) on 02/07/2025 10:51:02 AM Referred By: REFERRED SELF Confirmed By: Chidi Agudelo
--- NOTE | 2025-02-07 12:38 | Hospitalist Progress Note ---
Date of Service February 07, 2025 Assessment & Plan (1) Acute respiratory failure with hypoxia: (2) Multifocal pneumonia: (3) Systolic CHF, acute on chronic: (4) COPD exacerbation: Plan: 79-year-old male with history of splenectomy, COPD, interstitial lung disease, congestive heart failure systolic type, diabetes type 2, hypertension, AAA, bladder cancer, BPH, other problems noted below presenting with shortness of breath with productive cough timesx 1 week. Acute hypoxic respiratory failure secondary to multifocal pneumonia in the setting of interstitial lung disease, with COPD CHF likely contributing as well --CXR:Cardiomegaly with evidence of congestive failure. There are multifocal asymmetric bilateral airspace opacities. This could represent pulmonary edema and/or multifocal pneumonia. Clinical correlation will be required and ra diographic follow-up to resolution is recommended. This is superimposed on changes of chronic interstitial lung disease. No large pleural effusion is identified. -- Respiratory Biofire negative --Urine for Legionella pending --Blood cultures negative to date --Normal procalcitonin --Elevated ESR, CRP -- Empirically on cefepime, doxycycline Continue nebs, supplemental oxygen as needed Appreciate pulmonology input Continue pulmonary hygiene --May need 2 step prior to discharge Suspected acute on chronic systolic heart failure Valvular heart disease BNP elevated at 300s --ECHO: Mild diffuse left ventricular hypokinesis. Mild concentric left ventricular hypertrophy. EF 45-49%. Moderate valvular aortic stenosis. When compared to prior echo, no significant change other than tachycardia. Received IV Lasix Monitor I's and O's, daily weight Monitor volume status, electrolytes, renal function Started on metoprolol titrate--will need to transition to succinate on discharge Please do not fluid restriction Will likely need to be discharged on diuretic Will recommend to follow-up with cardiology on discharge Mild troponin elevation Likely demand ischemia EKG showed sinus tachycardia, bifascicular block, no significant change when compared to prior conference specialist Other chronic medical problems: Diabetes type 2-hold metformin, Jardiance, glipizide; insulin sliding scale and pharmacy glycemic control. Monitor blood glucose levels Hypertension- continue amlodipine, losartan AAA-continue rosuvastatin, aspirin BPH-continue finasteride. Monitor for urinary retention Bladder cancer- recent diagnosis, follows with not with any physicians group urology service, plan for BCG treatment next week. Needs follow-up with urology on discharge GERD- Continue omeprazole Osteoporosis, osteoarthritis H/O Splenectomy DVT prophylaxis Lovenox SQ CODE STATUS Full code Disposition Continue to monitor in PCU Admission and Anticipated Discharge Date Admission Date: February 06, 2025 Subjective Patient is seen and examined at bedside Dyspnea, chest congestion slowly improving Cough mostly dry today Saturating well on 3 L supplemental oxygen Chest x-ray today consistent with pulmonary edema Review of Systems Review of Systems: All systems reviewed & are unremarkable except as noted in Subjective Physical Exam Physical Exam: Physical Exam: Vitals signs as noted above General Appearance:Moderately built and nourished, no apparent distress Head: normocephalic, Atraumatic Eyes: normal inspection, EOMI Neck: supple, Trachea midline Respiratory/Chest: Normal breath sounds, Basal crackles, No accessory muscle use Cardiovascular: S1, S2, + murmur, Tachycardia Abdomen/GI:Soft, Non tender, Bowel sounds present Extremities/Musculoskeletal:normal inspection, no edema Neurologic/Psych:AAOX3, grossly no focal neurological deficits Skin: normal color, warm Results & Data Results & Data Vital Signs (Past 12 Hours) Vital Signs Temp Pulse Pulse Resp BP Pulse Ox O2 Del Method 02/07/25 11:20 36.7 C 105 H 106 H 20 97/64 L 97 Nasal Cannula 02/07/25 08:00 Nasal Cannula 02/07/25 07:25 120 H 18 96 Nasal Cannula 02/07/25 07:18 36.8 C 125 H 18 107/74 96 Nasal Cannula 02/07/25 03:14 36.6 C 122 H 20 119/73 96 Nasal Cannula 02/07/25 02:09 121 H 20 95 Nasal Cannula O2 Flow Rate 02/07/25 11:20 3 02/07/25 08:00 2 02/07/25 07:25 3 02/07/25 07:18 3 02/07/25 03:14 3 02/07/25 02:09 3 Laboratory Results Short CBC 02/07/25 Range/Units 06:21 WBC 6.08 (4.8-10.8) K/ul Hgb 13.7 L (14.0-18.0) g/dL Hct 41.5 L (42.0-52.0) % Plt Count 177 (130-400) K/uL BMP 02/07/25 06:21 Sodium 140 Potassium 4.5 Chloride 104 Carbon Dioxide 26 BUN 23 Creatinine 0.75 Glucose 145 H Calcium 9.3 Liver Function 02/07/25 Range/Units 06:21 Total Bilirubin 0.8 D (0.2-1.0) mg/dl AST 16 (13-39) U/L ALT 14 (7-52) U/L Alkaline Phosphatase 55 (34-104) U/L Albumin 3.9 (3.4-5.0) gm/dl
[2025-02-07] MEDS ORDERED: LEVALBUTEROL HCL 0.63 MG/3 ML NEB NEB PRN (13:30)
--- NOTE | 2025-02-07 14:58 | Pulmonology Progress Note ---
Date of Service February 07, 2025 Assessment & Plan (1) Acute diastolic heart failure: Plan: I personally reviewed the chest x-ray today which appears mildly improved from a pulmonary edema perspective. Additional dose of diuretic given today. Repeat chest x-ray tomorrow and likely pursue HRCT tomorrow once chest x-ray is completed and euvolemia is achieved. Echo reveals moderate aortic stenosis. Right ventricular function was "normal". (2) Acute respiratory failure with hypoxia: Plan: Likely secondary to CHF superimposed on ILD. I suspect he likely has a history of chronic hypoxemia which has come to light during this acute hospitalization. (3) Interstitial lung disease: Plan: He has an ill-defined ILD based on the pulmonary notes and CT chest reports from the OR at [facility]. What was noted includes punctate granulomas, ill-defined opacities and lower lobe bronchiectasis. Traction bronchiectasis, subpleural reticulations and honeycombing was not mentioned. His primary insurance agent at the OR does indicate that he has "probable IPF" although the radiologic report will suggest otherwise. Please obtain the images of CT chest reports from the OR and from [facility] and upload them into our PACS system. Will pursue an HRCT chest once he is more euvolemic to get a better sense of his parenchymal and airway architecture. 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 He also has a history of high normal calcium levels despite a normal GAYE level. His connective tissue disorder workup was largely unremarkable. ESR and CRP were elevated. Will recheck tomorrow and if persistently elevated, we will start empiric steroids. Will likely pursue HRCT chest tomorrow. Patient may be a candidate for antifibrotic therapy depending on his radiographic imaging. Antifibrotic can be addressed as an outpatient. MRSA screen was negative. Pro-Woody was negative. Unclear whether we are truly dealing with a bacterial infection at this time. The presence of lymphopenia would suggest potential viral infection, but respiratory viral panel was negative. Okay to continue empiric antibiotics for the time being. (4) Moderate aortic stenosis: Plan: Continue diuresis as able. Patient is very preload dependent. Patient follows with outpatient cardiology and is not a TAVR candidate as of yet. Plan I personally spent 40 minutes on the date of service in activities related to this patient's encounter, including 30 minutes of counseling with patient regarding treatment plan and 10 minutes of clinical review of lab results and documentation. I did vp & general counsel the patient regarding their diagnosis and treatment plan and they expressed understanding. This note was dictated using voice recognition software and may include grammatical errors, extra words, word substitutions and other inaccuracies due to errors in the voice recognition software and differences in speech patterns. Admission and Anticipated Discharge Date Admission Date: February 06, 2025 Subjective Mildly improved dyspnea. No chest pain. Minimal cough. No fevers, chills or night sweats. Review of Systems Review of Systems: All systems reviewed & are unremarkable except as noted in HPI & below Physical Exam Physical Exam: Constitutional: Patient appears to be of their stated age. Patient is in no apparent distress. Patient is well-developed. Eyes: Pupils are equal round and reactive to light. Conjunctivae are normal. Anicteric sclera. Ears nose, mouth and throat: Mallampati class 2. Normal posterior oropharynx. Uvula is midline. Neck: Trachea is midline. Visual inspection is normal. Respiratory: Mild bilateral crackles. Mild tachypnea. Conversational dyspnea. Cardiovascular: Tachycardic. 2 out of 6 systolic flow murmur. No edema. Gastrointestinal: Normal bowel sounds, soft, nontender and nondistended. No hepatosplenomegaly noted. Musculoskeletal: No cyanosis. Patient is able to move all extremities. Strength is 5 out of 5 in the upper and lower extremities. Skin: No rashes, warm dry and intact. Neurologic: No obvious focal neurological deficits seen. Psychiatric: Alert and oriented x3 with a euthymic affect. Results & Data Results & Data Vital Signs (Past 12 Hours) Vital Signs Temp Pulse Pulse Resp BP Pulse Ox O2 Del Method 02/07/25 13:28 105 H 20 95 Nasal Cannula 02/07/25 11:20 36.7 C 105 H 106 H 20 97/64 L 97 Nasal Cannula 02/07/25 08:00 Nasal Cannula 02/07/25 07:25 120 H 18 96 Nasal Cannula 02/07/25 07:18 36.8 C 125 H 18 107/74 96 Nasal Cannula 02/07/25 03:14 36.6 C 122 H 20 119/73 96 Nasal Cannula O2 Flow Rate 02/07/25 13:28 3 02/07/25 11:20 3 02/07/25 08:00 2 02/07/25 07:25 3 02/07/25 07:18 3 02/07/25 03:14 3 PG Care Time/CCT Total # of Minutes Spent Total Time Spent with Patient: Total time spent is greater than 50% in coordination of care (as documented) at patient's floor/unit and/or counseling patient: Coding Level of Care Code 76549 SUB INP/OBS CARE 2/35MIN Diagnoses Acute diastolic heart failure I50.31 Acute respiratory failure with hypoxia J96.01 Interstitial lung disease J84.9 Moderate aortic stenosis I35.0
[2025-02-08 06:50] LABS: Hematocrit (blood only) 43.0 % (42.0-52.0); Hemoglobin 14.2 g/dL (14.0-18.0); Mean Corpuscular Hemoglobin 33.3 pg (25.0-34.0); Mean Corpuscular Volume 100.9 fL (80.0-100.0); Platelet Count 197 K/uL (130-400); RDW Standard Deviation 59.3 fL (36.4-46.3); Red Blood Count 4.26 M/uL (4.70-6.10); White Blood Count 8.73 K/ul (4.8-10.8)
[2025-02-08 07:21] LABS: Anion Gap 10.0 (3-11); Blood Urea Nitrogen 26.0 mg/dl (6-23); Carbon Dioxide 27.0 mmol/L (21-32); Chloride 103.0 mmol/L (98-107); Potassium 3.7 mmol/L (3.5-5.1); Sodium 140.0 mmol/L (136-145)
[2025-02-08 07:22] LABS: Calcium 8.8 mg/dl (8.6-10.3); Creatinine Clr Calc Pharmacy 86.6 ml/min; Glucose 124.0 mg/dl (70-99(Fasting)); Magnesium 2.1 mg/dl (1.7-2.4)
--- NOTE | 2025-02-08 08:04 | XRay Report ---
EXAM: XR chest 1V portable CLINICAL HISTORY: follow up pulm edema TECHNIQUE: An X-ray image of the chest is obtained in AP projection. COMPARISON: 02/07/2025 FINDINGS: Pulmonary Parenchyma: Stationary course of the previously seen diffuse non homogeneous parenchyma with prominent bronchovascular markings. No pleural effusion/thickening. Heart and Mediastinum: Stable cardiomegaly and prominent aortic arch. No mediastinal widening or masses. No hilar or mediastinal lymphadenopathy. Bony Thorax: Bony thorax appears intact without fractures or deformities. Soft Tissues: Soft tissues overlying the chest wall are unremarkable. IMPRESSION: 1. Stable cardiomegaly. 2. Overall findings are of pulmonary edema (stable), clinical correlation and follow up is recommnded. Electronically signed by Walker Martin 02-08-2025 08:03 AM
--- NOTE | 2025-02-08 10:10 | Electrocardiogram Report ---
Test Reason : Blood Pressure : */* mmHG Vent. Rate : 127 BPM Atrial Rate : * BPM P-R Int : * ms QRS Dur : 154 ms QT Int : 364 ms P-R-T Axes : * -64 0 degrees QTcB Int : 529 ms Rapid supraventricular rhythm, suspect atrial flutter with 2:1 AV conduction Right bundle branch block Left anterior fascicular block Bifascicular block Abnormal ECG When compared with ECG of 10-Sep-2022 10:52, Vent. rate has increased by 58 bpm Confirmed by Chidi Agudelo ([id number]) on 02/08/2025 10:10:24 AM Referred By: REFERRED SELF Confirmed By: Chidi Agudelo
--- NOTE | 2025-02-08 11:43 | Cardiology Consultation ---
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 Further imaging suggestive of multifocal pneumonia in the setting of chronic interstitial lung disease. Patient had a sudden acceleration of heart rate at 0726 this morning with concern for sinus tachycardia vs Atrial flutter. Cardiology consulted for further evaluation and recommendations. Plan: 1. Acute respiratory failure with hypoxia 2. Multifocal pneumonia 3. Interstitial lung disease -Patient admitted with acute respiratory failure in the setting of multi-focal pneumonia -Remains on supplemental O2 at time of exam; however, he has been weaning down/off with stable saturations. -Appears euvolemic on exam -Pulmonology on board. Antibiotics per pulm and primary team. Currently on Doxycycline and Cefepime 4. Tachycardia -Resting EKG from outpatient setting shows patient's heart rates typically sinus rhythm in the 70's. -Abrupt acceleration of heart rated noted on telemetry at 0726. This raises question of a Atrial flutter vs Sinus tachycardia. -patient received one time dose of Digoxin 250mcg IV at 1227 -Metoprolol tartrate increased to 25mg PO QID. -Continue to monitor on telemetry. -Currently receiving subQ lovenox for DVT prophylaxis. Will reassess rhythm as rate slows to differentiate. If concerns of flutter, will need to consider addition of anticoagulation. [id number] score 4. 5. Chronic HFmrEF -received one time dose of IV diuretic yesterday -appears euvolemic on exam -Will need to monitor fluid status closely in the setting of tachycardia, mild reduction in LVEF, and knowledge that patient is receiving increased IV fluids with current antibiotic regimen. 6. Moderate aortic stenosis -Recent REBECA confirming moderate stenosis -Monitor volume status -Patient will continue OP follow up with both general cardiology as well as our Valve clinic (currently recommended for valve clinic follow up in July [address] Carvajal's note) Case has been discussed with Dr. Almonte. Further recommendations regarding plan of care as per his assessment. I spent a total of 50 minutes on the date of service in preparation, delivery, documentation of the care provided to the patient excluding any time spent in the performance of separately billed services. ANIL Walker [facility] Cardiology [facility] Supervising Physician Co-Signing Physician Notes Attending attestation: Case reviewed with the advanced practitioner. I have personally performed a history and physical examination on the patient. I have reviewed the advanced practitioner's documentation on the date of service referenced in note, and I agree with, and take responsibility for the plan of care. Subjective: Patient notes abrupt onset of worsening shortness of breath while walking in his driveway the day before admission to the hospital. Elevated heart rates noted thus far throughout hospital stay, seemingly telemetry consistent with sinus tachycardia. This morning however there is an abrupt increase in the heart rate to the range of 130 bpm and the heart rate remained there. Twelve-lead EKG performed and difficult to discern if this is sinus tachycardia or atypical atrial flutter. Patient without respiratory distress at present. Exam: Cardiovascular: Regular rhythm, 2/6 systolic murmur, no edema Pulmonary: Mildly decreased breath sounds bilaterally at the bases Data: EKG performed 02/08/2025 at 10:07 AM, narrow complex tachycardia 136 bpm consistent with sinus tachycardia versus atypical atrial flutter, nonspecific IVCD. Previous tracing 02/07/2025 appears to be sinus tachycardia 120 bpm bifascicular block Cardiac catheterization performed 07/10/2024 at [facility] [place] with noted intermediate proximal LAD lesion of 60%, FFR 0.96 (not hemodynamically significant) 50% OM2 stenosis Hemodynamic assessment indicated moderate aortic valve stenosis with pressure gradient of 31 mmHg Impression/ Plan: Multifactorial shortness of breath, perhaps heart failure with mildly reduced ejection fraction in the setting of moderate aortic valve stenosis, nonobstruct jose martin coronary artery disease, underlying interstitial lung disease. I do have concerns with the guards to the patient's degree of tachycardia and hypoxia and will therefore proceed with a CT angiogram pulmonary embolism study for completeness. Patient is not typically tachycardic with heart rates in the 70s on outpatient EKG studies in the past. Metoprolol titrated 25 mg 4 times daily. Added digoxin with IV load. Hold off on additional diuretics for now. Cardiology will follow. Kade Almonte DO History of Present Illness Reason for Consultation: CHF and tachycardia Requesting Physician: [facility] hospitalist Attending Physician: Lobo Costa MD History of Present Illness HPI: Patient is a 79 year old male with PMHx as outlined below that presented to the ER on 02/06/2025 with acute complaints of shortness of breath and a productive cough x1 week. Patient was admitted and diagnosed with acute hypoxic respiratory failure with multi-focal pneumonia and concern for CHF. Upon seeing patient today he is sitting up in bed wearing supplemental O2. Demonstrates increased work of breathing, but denies any active chest pain, pressure of palpitations. Denies edema, Denies near syncope or syncope symptoms. Echocardiogram obtained on day of admission showing ST with rates in the 120's, mild diffuse hypokinesis and mild LVH. LVEF 45-49% and moderate aortic valve stenosis. (FfU1Yuk: 346.8cm/sec) EKG today ST vs Atrial flutter rate 136bpm Review of telemetry shows patient was SR/ST overnight. IVCD rates 80-130's. He converted to Atrial flutter at 0726 with a rapid increase in heart rate from 80 to 136bpm. 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 Niraj Ziegler Evaluated by Valve clinic (Dr. Carvajal) 09/19/2024--underwent REBECA to assess degree of aortic stenosis--deemed moderate and recommended for valve clinic follow up in July 2025 with repeat echo Allergies Allergy/AdvReac Type Severity Reaction Status Date / Time No Known Allergies Allergy Verified 01/26/22 09:59 Home Medications Medication Instructions Recorded Confirmed Type aspirin 81 mg tablet,delayed 81 mg PO DAILY 04/20/18 02/06/25 History release metformin 500 mg tablet 1,000 mg PO BID 04/20/18 02/06/25 History (Glucophage) rosuvastatin 20 mg tablet (Crestor) 20 mg PO DAILY 04/20/18 02/06/25 History finasteride 5 mg tablet 5 mg PO DAILY #90 tabs 06/02/21 02/06/25 Rx Jardiance 10 mg PO DAILY 02/06/25 02/06/25 History glipizide 5 mg PO DAILY 02/06/25 02/06/25 History losartan 25 mg PO DAILY 02/06/25 02/06/25 History omeprazole 20 mg PO DAILY 02/06/25 02/06/25 History Patient History Social History Smoking Status: Former smoker Hx Alcohol Use: No Hx Substance Use: No Preferred Language: Emirati Communication Ability: Effective Service Associate Required: No Beliefs That Will Affect Care: None Current Living Situation: Alone Current Living Situation Comment: pt lives alone Feels Safe at Home: Yes Assistive Devices: Cane and Walker Review of Systems Review of Systems: All systems reviewed & are unremarkable except as noted in HPI & below Physical Exam Constitutional: well developed, well nourished and + ill appearing; no acute distress Neck: normal visual inspection and trachea midline Respiratory: + labored breathing (increased work of b reathing ), + cough and + tachypneic; no respiratory distress Auscultation: + diminished lung sounds (bilateral bases ); no crackles, no rales, no rhonchi and no wheezes Cardiovascular: Rate/Rhythm: + tachycardic and + irregularly irregular (rates 134 on telemetry) Heart Sounds: normal S1 and + murmur (+2/6 systolic ) Vessels: dorsalis pedis pulses present; no JVD Extremities: + edema (Trace BLE) Skin: no rashes, warm and dry Psychiatric: A+Ox3, euthymic affect Results & Data Vital Signs (Past 12 Hours) Vital Signs Temp Pulse Pulse Resp BP Pulse Ox O2 Del Method 02/08/25 11:32 36.3 C L 130 H 20 116/74 93 Room Air 02/08/25 08:02 36.4 C L 88 18 121/81 95 Nasal Cannula 02/08/25 07:46 89 02/08/25 06:55 88 18 93 Nasal Cannula 02/08/25 02:37 36.4 C L 87 18 107/73 94 Nasal Cannula 02/08/25 01:09 87 18 93 Nasal Cannula O2 Flow Rate 02/08/25 11:32 02/08/25 08:02 2 02/08/25 07:46 02/08/25 06:55 2 02/08/25 02:37 2 02/08/25 01:09 3 Laboratory Results Cardiac Enzymes 02/08/25 Range/Units 06:15 B-Natriuretic Peptide 359 H (0-100) pg/ml Coagulation 02/08/25 Range/Units 06:15 B-Natriuretic Peptide 359 H (0-100) pg/ml CBC 02/08/25 Range/Units 06:15 WBC 8.73 (4.8-10.8) K/ul RBC 4.26 L (4.70-6.10) M/uL Hgb 14.2 (14.0-18.0) g/dL Hct 43.0 (42.0-52.0) % Plt Count 197 (130-400) K/uL Comprehensive Metabolic Panel 02/08/25 Range/Units 06:15 Sodium 140 (136-145) mmol/L Potassium 3.7 (3.5-5.1) mmol/L Chloride 103 (98-107) mmol/L Carbon Dioxide 27 (21-32) mmol/L BUN 26 H (6-23) mg/dl Creatinine 0.83 (0.6-1.4) mg/dl Glucose 124 H (70-99(Fasting)) mg/dl Calcium 8.8 (8.6-10.3) mg/dl Intake and Output 02/07/25 02/08/25 02/08/25 22:59 06:59 14:59 Intake Total 300 / 300 0 / 300 Balance 300 / 300 0 / 300 Intake: Oral 300 / 300 0 / 300 Other: Weight 95.7 kg Weight Measurement Method Built in [facility] Coding Level of Care Code 46640 IN/OBS CONSULT LVL 5,80M Diagnoses Acute respiratory failure with hypoxia J96.01 Multifocal pneumonia J18.8 Interstitial lung disease J84.9 Tachycardia R00.0 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
[2025-02-08] MEDS: METOPROLOL TARTRATE 25 MG TAB PO SCH (12:21)
[2025-02-08] MEDS: DIGOXIN 250 MCG in SYRINGE 9 ML IV STA (12:21)
--- NOTE | 2025-02-08 14:17 | Pharmacy Report ---
Pharmacy Glycemic Short Note 2 - Date of Service February 08, 2025 - Glycemic Short BSG Results (Last 24 hours): 02/07/25 02/07/25 02/08/25 15:49 19:39 06:15 Glucose 124 H POC Glucose 129 H 166 H 02/08/25 02/08/25 07:18 11:04 Glucose POC Glucose 124 H 120 H OUTPATIENT ANTIDIABETIC REGIMEN: * metformin 500mg PO BID HbA1C: ___ ASSESSMENT: 02/08 * Florentino received 15 units of bolus insulin yesterday. * Fasting BSG this AM in goal range, no indication for basal insulin at this time unless steroids initiated. * No changes to NovoLog 02/06 * Pt is a 79 YOM admitted with acute respiratory failure and COPD exacerbation. History of DM2 on metformin at home. Pharmacy consulted to assist with inpatient glycemic management. BSGs 165-163mg/dL since admission. * Received methylprednisolone 60mg IV X 1 and ordered 40mg IV q8h ongoing. Receiving antibiotics. * Will initiate basal with Lantus 10 units SQ X 1 dose given q8h steroids and baseline BSG >160mg/dl. Reassess basal in AM. Novolog moderate stress scale ACHS. PLAN FOR INPATIENT GLYCEMIC CONTROL: * Hold outpatient oral diabetes medications * Basal insulin * none * Bolus insulin * NovoLog per scale ACHS or Q6hrs while NPO * Goal Range: Low 110 mg/dL - High 140 mg/dL * Correction Factor: 30 mg/dL/unit * Nutritional / Prandial insulin per carb ratio of 1 unit per 10 grams CHO consumed
--- NOTE | 2025-02-08 14:47 | Hospitalist Progress Note ---
Date of Service February 08, 2025 Assessment & Plan (1) Acute respiratory failure with hypoxia: (2) Multifocal pneumonia: (3) Systolic CHF, acute on chronic: (4) COPD exacerbation: Plan: 79-year-old male with history of splenectomy, COPD, interstitial lung disease, congestive heart failure systolic type, diabetes type 2, hypertension, AAA, bladder cancer, BPH, other problems noted below presenting with shortness of breath with productive cough timesx 1 week. Acute hypoxic respiratory failure secondary to multifocal pneumonia in the setting of interstitial lung disease, with COPD CHF likely contributing as well --CXR:Cardiomegaly with evidence of congestive failure. There are multifocal asymmetric bilateral airspace opacities. This could represent pulmonary edema and/or multifocal pneumonia. Clinical correlation will be required and ra diographic follow-up to resolution is recommended. This is superimposed on changes of chronic interstitial lung disease. No large pleural effusion is identified. -- Respiratory Biofire negative --Urine for Legionella pending --Blood cultures negative to date --Normal procalcitonin --Elevated ESR, CRP -- Continue cefepime, doxycycline Continue nebs Weaned off of supplemental oxygen Appreciate pulmonology input Continue pulmonary hygiene Needs follow-up with pulmonology on discharge Suspected acute on chronic systolic heart failure Valvular heart disease BNP elevated at 300s --ECHO: Mild diffuse left ventricular hypokinesis. Mild concentric left ventricular hypertrophy. EF 45-49%. Moderate valvular aortic stenosis. When compared to prior echo, no significant change other than tachycardia. Received IV Lasix Monitor I's and O's, daily weight Monitor volume status, electrolytes, renal function Started on metoprolol titrate--will need to transition to succinate on discharge Fluid restriction Cardiology consulted Will defer diuretic therapy to cardiology Sinus tachycardia Cannot rule out arrhythmia Also received digoxin Increase metoprolol titrate to 25 mg QID for now Monitor on telemetry Mild troponin elevation Likely demand ischemia EKG showed sinus tachycardia, bifascicular block, no significant change when compared to prior [facility] [employer] Other chronic medical problems: Diabetes type 2-hold metformin, Jardiance, glipizide; insulin sliding scale and pharmacy glycemic control. Monitor blood glucose levels Hypertension- continue losartan and metoprolol as above AAA-continue rosuvastatin, aspirin BPH-continue finasteride. Monitor for urinary retention Bladder cancer- recent diagnosis, follows with not with any physicians group urology service, plan for BCG treatment next week. Needs follow-up with urology on discharge GERD- Continue PPI Osteoporosis, osteoarthritis H/O Splenectomy DVT prophylaxis Lovenox SQ CODE STATUS Full code Disposition Continue to monitor in PCU Admission and Anticipated Discharge Date Admission Date: February 06, 2025 Subjective Patient is seen and examined at bedside Reports cough with brownish expectoration Less dyspnea today Saturating well on room air Sinus tachycardia on monitor Denies any chest pain, dizziness, nausea, vomiting, abdominal pain Review of Systems Review of Systems: All systems reviewed & are unremarkable except as noted in Subjective Physical Exam Physical Exam: Physical Exam: Vitals signs as noted above General Appearance:Moderately built and nourished, no apparent distress Head: normocephalic, Atraumatic Eyes: normal inspection, EOMI Neck: supple, Trachea midline Respiratory/Chest: Normal breath sounds, Basal crackles, No accessory muscle use Cardiovascular: S1, S2, + murmur, Tachycardia Abdomen/GI:Soft, Non tender, Bowel sounds present Extremities/Musculoskeletal:normal inspection, no edema Neurologic/Psych:AAOX3, grossly no focal neurological deficits Skin: normal color, warm Results & Data Results & Data Vital Signs (Past 12 Hours) Vital Signs Temp Pulse Pulse Resp BP Pulse Ox O2 Del Method 02/08/25 12:47 128 H 18 95 Room Air 02/08/25 12:21 113 H 02/08/25 11:32 36.3 C L 130 H 20 116/74 93 Room Air 02/08/25 08:02 36.4 C L 88 18 121/81 95 Nasal Cannula 02/08/25 07:46 89 02/08/25 06:55 88 18 93 Nasal Cannula O2 Flow Rate 02/08/25 12:47 02/08/25 12:21 02/08/25 11:32 02/08/25 08:02 2 02/08/25 07:46 02/08/25 06:55 2 Laboratory Results Short CBC 02/08/25 Range/Units 06:15 WBC 8.73 (4.8-10.8) K/ul Hgb 14.2 (14.0-18.0) g/dL Hct 43.0 (42.0-52.0) % Plt Count 197 (130-400) K/uL BMP 02/08/25 06:15 Sodium 140 Potassium 3.7 Chloride 103 Carbon Dioxide 27 BUN 26 H Creatinine 0.83 Glucose 124 H Calcium 8.8
[2025-02-08] MEDS: OPTIRAY 320 125ml IV ONE (15:56)
--- NOTE | 2025-02-08 16:05 | Electrocardiogram Report ---
Test Reason : Blood Pressure : */* mmHG Vent. Rate : 136 BPM Atrial Rate : 136 BPM P-R Int : 112 ms QRS Dur : 148 ms QT Int : 358 ms P-R-T Axes : 93 -65 38 degrees QTcB Int : 538 ms Rapid supraventricular tahycardia, cannot exclude SVT or atrial flutter vs sinus tahycardia Left axis deviation Right bundle branch block Minimal voltage criteria for LVH, may be normal variant ( [place] product ) Abnormal ECG When compared with ECG of 07-Feb-2025 09:13, No significant change was found Confirmed by Chidi Agudelo ([id number]) on 02/08/2025 4:04:50 PM Referred By: REFERRED SELF Confirmed By: Chidi Agudelo
--- NOTE | 2025-02-08 16:17 | CT Scan Report ---
Clinical history: Rule out pulmonary embolism Technique: Axial computed tomography images were obtained of the chest after the administration of intravenous contrast according to the CT angiogram protocol Findings: There is no definite sign of pulmonary embolism. There is a possible combination of mild pulmonary fibrosis and mild pulmonary edema, with multifocal predominantly peripheral interstitial opacities as well as areas of thickening of the interlobular septa and scattered groundglass opacities. There is no pneumothorax. There are bilateral small to moderate sized pleural effusions There are mildly enlarged mediastinal lymph nodes, measuring up to 1.3 cm in short axis. The thoracic aorta appears unremarkable with no sign of aneurysm or dissection. There is no pericardial effusion. There is coronary atherosclerosis There is a 1.9 cm cyst in the medial segment of the left hepatic lobe. No fracture is seen. No focal osseous lesion is evident Impression: 1. No definite sign of pulmonary embolism 2. Bilateral pleural effusions 3. Suspected combination of mild pulmonary fibrosis and mild pulmonary edema 4. Mild mediastinal adenopathy 5. Hepatic cyst 6. Coronary atherosclerosis Electronically signed by Bahman Felix 02-08-2025 4:17 PM
--- NOTE | 2025-02-08 16:39 | Communication Note ---
Date of Service: February 08, 2025 Repeat EKG performed 02/08/2025 at 1514, 2 tracings performed at that time and reviewed independently: Findings consistent with atrial fibrillation with right bundle branch block morphology. CT angiogram negative for pulmonary embolism. Plan: Continue digoxin and metoprolol. Add Eliquis, 5 mg now, next dose a.m. of 02/09/2025. Ross Almonte DO
--- NOTE | 2025-02-08 16:55 | Pulmonology Progress Note ---
Date of Service February 08, 2025 Assessment & Plan (1) Acute diastolic heart failure: (2) Acute respiratory failure with hypoxia: (3) Interstitial lung disease: (4) Moderate aortic stenosis: Plan CTA chest 02/08/2025 personally reviewed:Motion degraded study Patchy ground glass opacity in the right upper lobe Small to moderate right-sided pleural effusion, small left-sided pleural effusion Increased reticular marking appreciated on the periphery Some mosaicism in the lower lobes Does have traction bronchiectasis Minimal mediastinal lymphadenopathy especially station 7 2D echo 02/06/2025: EF 45-50%, mild concentric LVH, mild diffuse left ventricular hypokinesis, moderate aortic stenosis, RV normal in size and function -- Acute hypoxic respiratory failure Multifactorial I think this is most likely systolic plus diastolic CHF with aortic stenosis on underlying ILD Nasal MRSA negative Respiratory BioFire negative for everything Elevated ESR 68 with CRP 6 Procalcitonin negative Continue with O2 supplementation to keep oxygen saturation between 90-92% --A-fib On Eliquis and digoxin -- High probability of sleep apnea Recommend outpatient polysomnography Plan: In/out: +1.2 L since coming to the hospital, there is no accurate output measurement Recommend strict ins and outs measurements. Continue with diuretics to keep the patient negative balance Complete the course of atypical antibiotics for at least 5 days Will give a trial of CPAP 6 cm H2O nightly All questions and queries of the patient as well as patient's daughter were answered in depth I spent more than 50 minutes looking in the chart, images, discussing with outgoing physician, discussing the plan of care with the patient, RN as well as primary team Please note the above document was generated using voice recognition software. It may contain grammatical, syntax or spelling errors.Any formal questions or concerns about the content, text or information contained within the body of this dictation should be directly addressed to the provider for clarification. Admission and Anticipated Discharge Date Admission Date: February 06, 2025 Subjective Patient seen and examined at bedside. No acute distress, no adverse events overnight Patient daughter was in the room Overall he says he is feeling better compared to before He is diuresing well Denied any chest pain No unusual headache or blurry vision Fair appetite. No nausea or vomiting Review of Systems 2 Review of Systems: All systems reviewed & are unremarkable except as noted in Subjective Physical Exam 2 Physical Exam: Constitutional: No acute distress HEENT: EOMI, PERRLA Respiratory system: Decreased air entry bilaterally, no wheeze, no rhonchi, positive Velcro-like crackles appreciated bilaterally more on the left side and anteriorly CVS: S1-S2 positive, positive 3/6 systolic murmur appreciated best at left parasternal border Abdomen: Soft, nontender, nondistended, positive bowel sounds x4 Extremities: +2 pulses bilaterally radialis/ dorsalis pedis, no cyanosis, no edema Neuro: Awake alert oriented x3 Psych: Normal mood and affect G/U: No Awad Skin: no rashes, warm and dry Lymphatic: no cervical or axillary lymphadenopathy Results & Data Results & Data Vital Signs (Past 12 Hours) Vital Signs Temp Pulse Pulse Resp BP Pulse Ox O2 Del Method 02/08/25 16:01 36.7 C 89 18 118/73 96 Nasal Cannula 02/08/25 15:41 108 H 02/08/25 12:47 128 H 18 95 Room Air 02/08/25 12:21 113 H 02/08/25 11:32 36.3 C L 130 H 20 116/74 93 Room Air 02/08/25 08:02 36.4 C L 88 18 121/81 95 Nasal Cannula 02/08/25 07:46 89 02/08/25 06:55 88 18 93 Nasal Cannula O2 Flow Rate 02/08/25 16:01 2 02/08/25 15:41 02/08/25 12:47 02/08/25 12:21 02/08/25 11:32 02/08/25 08:02 2 02/08/25 07:46 02/08/25 06:55 2 Laboratory Results 02/08/25 06:15 02/08/25 06:15 PG Care Time/CCT Total # of Minutes Spent Total Time Spent with Patient: Total time spent is greater than 50% in coordination of care (as documented) at patient's floor/unit and/or counseling patient: Coding Level of Care Code 16448 SUB INP/OBS CARE 3/50MIN Diagnoses Acute diastolic heart failure I50.31 Acute respiratory failure with hypoxia J96.01 Interstitial lung disease J84.9 Moderate aortic stenosis I35.0
[2025-02-08] MEDS: APIXABAN 5 MG TABLET PO ONE (16:58)
[2025-02-08] MEDS: DIGOXIN 250 MCG in SYRINGE 9 ML IV ONE (17:35)
[2025-02-09 06:02] LABS: Hematocrit (blood only) 45.1 % (42.0-52.0); Hemoglobin 14.7 g/dL (14.0-18.0); Mean Corpuscular Hemoglobin 33.0 pg (25.0-34.0); Mean Corpuscular Volume 101.3 fL (80.0-100.0); Platelet Count 195 K/uL (130-400); RDW Standard Deviation 58.4 fL (36.4-46.3); Red Blood Count 4.45 M/uL (4.70-6.10); White Blood Count 7.93 K/ul (4.8-10.8)
[2025-02-09 06:18] LABS: Anion Gap 8.0 (3-11); Blood Urea Nitrogen 19.0 mg/dl (6-23); Calcium 8.9 mg/dl (8.6-10.3); Carbon Dioxide 27.0 mmol/L (21-32); Chloride 101.0 mmol/L (98-107); Creatinine Clr Calc Pharmacy 90.9 ml/min; Glucose 129.0 mg/dl (70-99(Fasting)); Magnesium 2.1 mg/dl (1.7-2.4); Potassium 4.4 mmol/L (3.5-5.1); Sodium 136.0 mmol/L (136-145)
[2025-02-09] MEDS: APIXABAN 5 MG TABLET PO SCH (08:01)
--- NOTE | 2025-02-09 08:49 | Pulmonology Progress Note ---
Date of Service February 09, 2025 Assessment & Plan (1) Acute diastolic heart failure: (2) Acute respiratory failure with hypoxia: (3) Interstitial lung disease: (4) Moderate aortic stenosis: Plan CTA chest 02/08/2025 personally reviewed:Motion degraded study Patchy ground glass opacity in the right upper lobe Small to moderate right-sided pleural effusion, small left-sided pleural effusion Increased reticular marking appreciated on the periphery Some mosaicism in the lower lobes Does have traction bronchiectasis Minimal mediastinal lymphadenopathy especially station 7 2D echo 02/06/2025: EF 45-50%, mild concentric LVH, mild diffuse left ventricular hypokinesis, moderate aortic stenosis, RV normal in size and function -- Acute hypoxic respiratory failure Multifactorial I think this is most likely systolic plus diastolic CHF with aortic stenosis on underlying ILD Nasal MRSA negative Respiratory BioFire negative for everything Elevated ESR 68 with CRP 6 Procalcitonin negative Continue with O2 supplementation to keep oxygen saturation between 90-92% --A-fib On Eliquis and digoxin -- High probability of sleep apnea Recommend outpatient polysomnography Plan: In/out: +1.9 L since coming to the hospital, there is no accurate output measurement Recommend strict ins and outs measurements. Continue with diuretics to keep the patient negative balance Complete the course of atypical antibiotics for at least 5 days It is difficult for me to say that this is worsening of his underlying ILD. I think component of decreased ejection fraction and arrythmia causing pulmonary vascular congestion is making it seem that the patient's ILD is getting worse I would recommend optimization of the patient's volume status with diuretics, heart rate control medications Following this HRCT and PFT as an outpatient can be done and then decide whether he will benefit from antifibrotic's Recommend outpatient polysomnography The patient is going to follow-up with Dr. Hansen as an outpatient Case discussed with RN and primary team Please note the above document was generated using voice recognition software. It may contain grammatical, syntax or spelling errors.Any formal questions or concerns about the content, text or information contained within the body of this dictation should be directly addressed to the provider for clarification. Admission and Anticipated Discharge Date Admission Date: February 06, 2025 Subjective Patient seen and examined at bedside. No acute distress, nervousness overnight He did a trial of CPAP last night but he was not able to tolerate it well He was saturating 97% on 2 L nasal cannula, and went down to 1 L Has been diuresing well Denies any nausea or vomiting. Fair appetite No chest pain. Has been bringing up phlegm without any issues Has been using flutter valve Review of Systems 2 Review of Systems: All systems reviewed & are unremarkable except as noted in Subjective Physical Exam 2 Physical Exam: Constitutional: No acute distress HEENT: EOMI, PERRLA Respiratory system: Decreased air entry bilaterally, no wheeze, no rhonchi, positive Velcro-like crackles appreciated bilaterally more on the left side and anteriorly CVS: S1-S2 positive, positive 3/6 systolic murmur appreciated best at left parasternal border Abdomen: Soft, nontender, nondistended, positive bowel sounds x4 Extremities: +2 pulses bilaterally radialis/ dorsalis pedis, no cyanosis, no edema Neuro: Awake alert oriented x3 Psych: Normal mood and affect G/U: No Awad Skin: no rashes, warm and dry Lymphatic: no cervical or axillary lymphadenopathy Results & Data Results & Data Vital Signs (Past 12 Hours) Vital Signs Temp Pulse Pulse Resp BP Pulse Ox O2 Del Method 02/09/25 07:20 36.7 C 102 H 20 108/72 98 Nasal Cannula 02/09/25 07:15 111 H 18 89 L Room Air 02/09/25 03:17 36.6 C 87 18 117/72 96 Nasal Cannula 02/08/25 23:48 36.7 C 86 18 132/71 95 Nasal Cannula 02/08/25 21:59 86 02/08/25 21:05 101 H 18 93 Nasal Cannula O2 Flow Rate 02/09/25 07:20 2 02/09/25 07:15 02/09/25 03:17 2 02/08/25 23:48 2 02/08/25 21:59 02/08/25 21:05 2 Laboratory Results 02/09/25 05:28 02/09/25 05:28 PG Care Time/CCT Total # of Minutes Spent Total Time Spent with Patient: Total time spent is greater than 50% in coordination of care (as documented) at patient's floor/unit and/or counseling patient: Coding Level of Care Code 99240 SUB INP/OBS CARE 2/35MIN Diagnoses Acute diastolic heart failure I50.31 Acute respiratory failure with hypoxia J96.01 Interstitial lung disease J84.9 Moderate aortic stenosis I35.0
--- NOTE | 2025-02-09 10:07 | Cardiology Progress Note ---
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 In retrospect, telemetry and EKG tracings since admission likely indicative of atypical atrial flutter with variable conduction/atrial flutter Of uncertain duration, however onset may have correlated with the patient's abrupt onset of dyspnea earlier this week. -Patient is a poor candidate for antiarrhythmic therapy with amiodarone given underlying lung disease. Conduction system disease with right bundle branch block would make initiation of an alternative antiarrhythmic such as sotalol or dofetilide difficult due to baseline QT interval prolongation. -Hold off on further furosemide for now -Continue digoxin (on file transition to oral today) -Transition of Toprol tartrate to succinate this evening -If remains in atrial flutter/fibrillation, future considerations include direct-current cardioversion after 4 weeks of uninterrupted anticoagulation with Eliquis or REBECA guided cardioversion earlier. -Anticipate increased likelihood of success with cardioversion performed after pulmonary status and valve status optimized. Ross Almonte DO Admission and Anticipated Discharge Date Admission Date: February 06, 2025 Subjective Patient seen in cardiology follow-up. Notes breathing is improved, he however does describe a productive cough. Afebrile. Denies subjective palpitations. Physical Exam Constitutional: well developed, well nourished and + ill appearing; no acute distress Neck: normal visual inspection and trachea midline Respiratory: + labored breathing (increased work of b reathing ), + cough and + tachypneic; no respiratory distress Auscultation: + diminished lung sounds (bilateral bases ); no crackles, no rales, no rhonchi and no wheezes Cardiovascular: Rate/Rhythm: + tachycardic and + irregularly irregular (rates 134 on telemetry) Heart Sounds: normal S1 and + murmur (+2/6 systolic ) Vessels: dorsalis pedis pulses present; no JVD Extremities: + edema (Trace BLE) Skin: no rashes, warm and dry Psychiatric: A+Ox3, euthymic affect Results & Data Vital Signs (Past 12 Hours) Vital Signs Temp Pulse Pulse Resp BP Pulse Ox O2 Del Method 02/09/25 07:20 36.7 C 102 H 20 108/72 98 Nasal Cannula 02/09/25 07:15 111 H 18 89 L Room Air 02/09/25 03:17 36.6 C 87 18 117/72 96 Nasal Cannula 02/08/25 23:48 36.7 C 86 18 132/71 95 Nasal Cannula 02/08/25 21:59 86 O2 Flow Rate 02/09/25 07:20 2 02/09/25 07:15 02/09/25 03:17 2 02/08/25 23:48 2 02/08/25 21:59 Laboratory Results CBC 02/09/25 Range/Units 05:28 WBC 7.93 (4.8-10.8) K/ul RBC 4.45 L (4.70-6.10) M/uL Hgb 14.7 (14.0-18.0) g/dL Hct 45.1 (42.0-52.0) % Plt Count 195 (130-400) K/uL Comprehensive Metabolic Panel 02/09/25 Range/Units 05:28 Sodium 136 (136-145) mmol/L Potassium 4.4 (3.5-5.1) mmol/L Chloride 101 (98-107) mmol/L Carbon Dioxide 27 (21-32) mmol/L BUN 19 (6-23) mg/dl Creatinine 0.79 (0.6-1.4) mg/dl Glucose 129 H (70-99(Fasting)) mg/dl Calcium 8.9 (8.6-10.3) mg/dl Coding Level of Care Code 10081 SUB INP/OBS CARE 3/50MIN Diagnoses Atrial flutter I48.92 Acute respiratory failure with hypoxia J96.01 Multifocal pneumonia J18.8 Interstitial lung disease J84.9 Chronic heart failure with mildly reduced ejection fraction (HFmrEF, 41-49%) I50.22 Moderate aortic stenosis I35.0
[2025-02-09] MEDS: DOCUSATE SODIUM 100 MG CAP PO SCH (12:48)
[2025-02-09] MEDS: POLYETHYLENE (MIRALAX) 17 GM PACK PO PRN (12:48)
[2025-02-09] MEDS: POLYETHYLENE (MIRALAX) 17 GM PACK ONE (12:48)
--- NOTE | 2025-02-09 14:27 | Hospitalist Progress Note ---
Date of Service February 09, 2025 Assessment & Plan (1) Acute respiratory failure with hypoxia: (2) Multifocal pneumonia: (3) Systolic CHF, acute on chronic: (4) COPD exacerbation: Plan: 79-year-old male with history of splenectomy, COPD, interstitial lung disease, congestive heart failure systolic type, diabetes type 2, hypertension, AAA, bladder cancer, BPH, other problems noted below presenting with shortness of breath with productive cough timesx 1 week. Acute hypoxic respiratory failure secondary to multifocal pneumonia in the setting of interstitial lung disease, with COPD CHF likely contributing as well --CXR:Cardiomegaly with evidence of congestive failure. There are multifocal asymmetric bilateral airspace opacities. This could represent pulmonary edema and/or multifocal pneumonia. Clinical correlation will be required and ra diographic follow-up to resolution is recommended. This is superimposed on changes of chronic interstitial lung disease. No large pleural effusion is identified. --Chest CT: No definite sign of pulmonary embolism. Bilateral pleural effusions . Suspected combination of mild pulmonary fibrosis and mild pulmonary edema . Mild mediastinal adenopathy . Hepatic cyst . Coronary atherosclerosis -- Respiratory Biofire negative --Urine for Legionella pending --Blood cultures negative to date --Normal procalcitonin --Elevated ESR, CRP -- Continue cefepime, doxycycline Continue nebs Weaned off of supplemental oxygen Appreciate pulmonology input Continue pulmonary hygiene Needs follow-up with pulmonology on discharge Needs sleep study as outpatient Consider 2 step prior to discharge Respiratory status improving Atrial flutter Continue digoxin Continue metoprolol succinate 50 mg twice a day On Eliquis for anticoagulation Monitor and replete electrolytes as needed May need cardioversion eventually if spontaneously does not convert to sinus rhythm Appreciate cardiology input Suspected acute on chronic systolic heart failure Valvular heart disease--moderate aortic stenosis BNP elevated at 300s --ECHO: Mild diffuse left ventricular hypokinesis. Mild concentric left ventricular hypertrophy. EF 45-49%. Moderate valvular aortic stenosis. When compared to prior echo, no significant change other than tachycardia. 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 Monitor blood glucose levels Hypertension- continue losartan and metoprolol as above AAA-continue rosuvastatin, aspirin BPH-continue finasteride. Monitor for urinary retention Bladder cancer- recent diagnosis, follows with not with any physicians group urology service, plan for BCG treatment next week. Needs follow-up with urology on discharge GERD- Continue PPI Osteoporosis, osteoarthritis H/O Splenectomy DVT prophylaxis Eliquis CODE STATUS Full code Disposition Continue to monitor in PCU Admission and Anticipated Discharge Date Admission Date: February 06, 2025 Subjective Patient is seen and examined at bedside Heart rate is better controlled today Still has some cough with expectoration Dyspnea on exertion much improved Denies any palpitations, chest pain, dizziness, nausea, vomiting, abdominal pain Review of Systems Review of Systems: All systems reviewed & are unremarkable except as noted in Subjective Physical Exam Physical Exam: Physical Exam: Vitals signs as noted above General Appearance:Moderately built and nourished, no apparent distress Head: normocephalic, Atraumatic Eyes: normal inspection, EOMI Neck: supple, Trachea midline Respiratory/Chest: Normal breath sounds, Basal crackles, No accessory muscle use Cardiovascular: Irregularly irregular, + murmur Abdomen/GI:Soft, Non tender, Bowel sounds present Extremities/Musculoskeletal:normal inspection, no edema Neurologic/Psych:AAOX3, grossly no focal neurological deficits Skin: normal color, warm Results & Data Results & Data Vital Signs (Past 12 Hours) Vital Signs Temp Pulse Resp BP Pulse Ox O2 Del Method O2 Flow Rate 02/09/25 13:19 55 L 17 91 Room Air 02/09/25 11:15 36.5 C 79 16 105/71 93 Nasal Cannula 1 02/09/25 07:20 36.7 C 102 H 20 108/72 98 Nasal Cannula 2 02/09/25 07:15 111 H 18 89 L Room Air 02/09/25 03:17 36.6 C 87 18 117/72 96 Nasal Cannula 2 FiO2 02/09/25 13:19 21 02/09/25 11:15 02/09/25 07:20 02/09/25 07:15 02/09/25 03:17 Laboratory Results Short CBC 02/09/25 Range/Units 05:28 WBC 7.93 (4.8-10.8) K/ul Hgb 14.7 (14.0-18.0) g/dL Hct 45.1 (42.0-52.0) % Plt Count 195 (130-400) K/uL [facility] 02/09/25 05:28 Sodium 136 Potassium 4.4 Chloride 101 Carbon Dioxide 27 BUN 19 Creatinine 0.79 Glucose 129 H Calcium 8.9
[2025-02-09] MEDS: DIGOXIN 0.125 MG TAB PO SCH (17:16)
[2025-02-09] MEDS: METOPROLOL SUCC 50MG EXT REL TAB PO SCH (21:07)
[2025-02-10 07:17] LABS: Hematocrit (blood only) 46.3 % (42.0-52.0); Hemoglobin 15.6 g/dL (14.0-18.0); Mean Corpuscular Hemoglobin 33.1 pg (25.0-34.0); Mean Corpuscular Volume 98.3 fL (80.0-100.0); Platelet Count 228 K/uL (130-400); RDW Standard Deviation 54.2 fL (36.4-46.3); Red Blood Count 4.71 M/uL (4.70-6.10); White Blood Count 8.23 K/ul (4.8-10.8)
[2025-02-10 08:01] LABS: Anion Gap 9.0 (3-11); Blood Urea Nitrogen 19.0 mg/dl (6-23); Calcium 9.5 mg/dl (8.6-10.3); Carbon Dioxide 27.0 mmol/L (21-32); Chloride 101.0 mmol/L (98-107); Creatinine Clr Calc Pharmacy 101.4 ml/min; Glucose 138.0 mg/dl (70-99(Fasting)); Magnesium 2.0 mg/dl (1.7-2.4); Potassium 4.2 mmol/L (3.5-5.1); Sodium 137.0 mmol/L (136-145)
[2025-02-10 11:27] VITALS: BP 122/43; TEMP 97.7
--- NOTE | 2025-02-10 11:53 | Cardiology Progress Note ---
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 In retrospect, telemetry and EKG tracings since admission likely indicative of atypical atrial flutter with variable conduction/atrial flutter Of uncertain duration, however onset may have correlated with the patient's abrupt onset of dyspnea earlier this week. -Patient is a poor candidate for antiarrhythmic therapy with amiodarone given underlying lung disease. Conduction system disease with right bundle branch block would make initiation of an alternative antiarrhythmic such as sotalol or dofetilide difficult due to baseline QT interval prolongation. -Hold off on further furosemide. -Continue digoxin0.25 mg by mouth daily (new medication) -Continue metoprolol succinate 50 mg twice daily(New medication) -Continue Eliquis 5 mg twice daily (new medication) ---If patient feels reasonably well with a walk in the hallway, discharge today can be considered from a cardiac perspective. -If remains in atrial flutter/fibrillation, future considerations include direct-current cardioversion after 4 weeks of uninterrupted anticoagulation with Eliquis or REBECA guided cardioversion earlier. -Anticipate increased likelihood of success with cardioversion performed after pulmonary status and valve status optimized. -Patient request short-term prescriptions to [facility], as outpatient long-term prescriptions to [facility]. -Will arrange outpatient cardiology follow-up. Ross Almonte DO Admission and Anticipated Discharge Date Admission Date: February 06, 2025 Subjective Mr. Gonzalez was seen in cardiology follow-up of atrial flutter/ fibrillation. Subjectively he states his shortness of breath has improved although he has only walked short distances in his room to the bathroom and has not gone for a walk in the hallway yet. Telemetry reveals ongoing atrial fibrillation however rates are much better controlled with ventricular rate in the range of 90 to 110 bpm at rest. Physical Exam Constitutional: well developed, well nourished and + ill appearing; no acute distress Neck: normal visual inspection and trachea midline Respiratory: + labored breathing (increased work of b reathing ), + cough and + tachypneic; no respiratory distress Auscultation: + diminished lung sounds (bilateral bases ); no crackles, no rales, no rhonchi and no wheezes Cardiovascular: Rate/Rhythm: + tachycardic and + irregularly irregular (rates 134 on telemetry) Heart Sounds: normal S1 and + murmur (+2/6 systolic ) Vessels: dorsalis pedis pulses present; no JVD Extremities: no edema Skin: no rashes, warm and dry Psychiatric: A+Ox3, euthymic affect Results & Data Vital Signs (Past 12 Hours) Vital Signs Temp Pulse Resp BP Pulse Ox O2 Del Method O2 Flow Rate 02/10/25 11:26 36.5 C 66 20 122/43 L 92 Room Air 02/10/25 07:21 36.3 C L 66 18 103/67 99 Room Air 02/10/25 07:14 72 16 94 Room Air 02/10/25 03:52 36.6 C 86 18 116/73 92 Nasal Cannula 1 02/10/25 01:48 90 18 90 Room Air Laboratory Results CBC 02/10/25 Range/Units 06:22 WBC 8.23 (4.8-10.8) K/ul RBC 4.71 (4.70-6.10) M/uL Hgb 15.6 (14.0-18.0) g/dL Hct 46.3 (42.0-52.0) % Plt Count 228 (130-400) K/uL Comprehensive Metabolic Panel 02/10/25 Range/Units 06:22 Sodium 137 (136-145) mmol/L Potassium 4.2 (3.5-5.1) mmol/L Chloride 101 (98-107) mmol/L Carbon Dioxide 27 (21-32) mmol/L BUN 19 (6-23) mg/dl Creatinine 0.71 (0.6-1.4) mg/dl Glucose 138 H (70-99(Fasting)) mg/dl Calcium 9.5 (8.6-10.3) mg/dl Intake and Output 02/09/25 02/10/25 02/10/25 22:59 06:59 14:59 Intake Total 240 / 1730 750 / 1730 Balance 240 / 1730 750 / 1730 Intake: Oral 240 / 1730 750 / 1730 Other: Weight 96 kg Weight Measurement Method [facility] Care Time/CCT Total # of Minutes Spent Total Time Spent with Patient: Total time spent is greater than 50% in coordination of care (as documented) at patient's floor/unit and/or counseling patient: Coding Level of Care Code 23007 SUB INP/OBS CARE 3/50MIN Diagnoses Atrial flutter I48.92 Acute respiratory failure with hypoxia J96.01 Multifocal pneumonia J18.8 Interstitial lung disease J84.9 Chronic heart failure with mildly reduced ejection fraction (HFmrEF, 41-49%) I50.22 Moderate aortic stenosis I35.0
--- NOTE | 2025-02-10 12:28 | Hospitalist Progress Note ---
Date of Service February 10, 2025 Assessment & Plan (1) Acute respiratory failure with hypoxia: (2) Multifocal pneumonia: (3) Systolic CHF, acute on chronic: (4) COPD exacerbation: Plan: 79-year-old male with history of splenectomy, COPD, interstitial lung disease, congestive heart failure systolic type, diabetes type 2, hypertension, AAA, bladder cancer, BPH, other problems noted below presenting with shortness of breath with productive cough timesx 1 week. Acute hypoxic respiratory failure secondary to multifocal pneumonia in the setting of interstitial lung disease, with COPD CHF likely contributing as well --CXR:Cardiomegaly with evidence of congestive failure. There are multifocal asymmetric bilateral airspace opacities. This could represent pulmonary edema and/or multifocal pneumonia. Clinical correlation will be required and ra diographic follow-up to resolution is recommended. This is superimposed on changes of chronic interstitial lung disease. No large pleural effusion is identified. --Chest CT: No definite sign of pulmonary embolism. Bilateral pleural effusions . Suspected combination of mild pulmonary fibrosis and mild pulmonary edema . Mild mediastinal adenopathy . Hepatic cyst . Coronary atherosclerosis -- Respiratory Biofire negative --Urine for Legionella pending --Blood cultures negative to date --Normal procalcitonin --Elevated ESR, CRP -- Continue cefepime, doxycycline>> transition to oral antibiotics to complete the course Continue nebs Weaned off of supplemental oxygen Appreciate pulmonology input Continue pulmonary hygiene Needs follow-up with pulmonology on discharge Needs sleep study as outpatient 2 step: Did not qualify for supplemental oxygen Plan to be discharged home today Atrial flutter Continue digoxin Continue metoprolol succinate 50 mg twice a day On Eliquis for anticoagulation Monitor and replete electrolytes as needed May need cardioversion eventually if spontaneously does not convert to sinus rhythm as outpatient after 4 weeks of anticoagulation Appreciate cardiology input Needs follow-up with cardiology on discharge Suspected acute on chronic systolic heart failure Valvular heart disease--moderate aortic stenosis BNP elevated at 300s --ECHO: Mild diffuse left ventricular hypokinesis. Mild concentric left ventricular hypertrophy. EF 45-49%. Moderate valvular aortic stenosis. When compared to prior echo, no significant change other than tachycardia. 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 Monitor blood glucose levels Hypertension- continue losartan and metoprolol as above AAA-continue rosuvastatin, aspirin BPH-continue finasteride. Monitor for urinary retention Bladder cancer- recent diagnosis, follows with not with any [facility] group urology service, plan for BCG treatment next week. Needs follow-up with urology on discharge GERD- Continue PPI Osteoporosis, osteoarthritis H/O Splenectomy DVT prophylaxis Eliquis CODE STATUS Full code Disposition Home Admission and Anticipated Discharge Date Admission Date: February 06, 2025 Subjective Patient is seen and examined at bedside Feels a lot better today Heart rate is controlled No new complaints Dyspnea resolved No significant cough Denies any palpitations, chest pain, dizziness, nausea, vomiting, abdominal pain Saturating well on room air Review of Systems Review of Systems: All systems reviewed & are unremarkable except as noted in Subjective Physical Exam Physical Exam: Physical Exam: Vitals signs as noted above General Appearance:Moderately built and nourished, no apparent distress Head: normocephalic, Atraumatic Eyes: normal inspection, EOMI Neck: supple, Trachea midline Respiratory/Chest: Normal breath sounds, Basal crackles, No accessory muscle use Cardiovascular: Irregularly irregular, + murmur Abdomen/GI:Soft, Non tender, Bowel sounds present Extremities/Musculoskeletal:normal inspection, no edema Neurologic/Psych:AAOX3, grossly no focal neurological deficits Skin: normal color, warm Results & Data Results & Data Vital Signs (Past 12 Hours) Vital Signs Temp Pulse Resp BP Pulse Ox O2 Del Method O2 Flow Rate 02/10/25 11:26 36.5 C 66 20 122/43 L 92 Room Air 02/10/25 07:21 36.3 C L 66 18 103/67 99 Room Air 02/10/25 07:14 72 16 94 Room Air 02/10/25 03:52 36.6 C 86 18 116/73 92 Nasal Cannula 1 02/10/25 01:48 90 18 90 Room Air Laboratory Results Short CBC 02/10/25 Range/Units 06:22 WBC 8.23 (4.8-10.8) K/ul Hgb 15.6 (14.0-18.0) g/dL Hct 46.3 (42.0-52.0) % Plt Count 228 (130-400) K/uL BMP 02/10/25 06:22 Sodium 137 Potassium 4.2 Chloride 101 Carbon Dioxide 27 BUN 19 Creatinine 0.71 Glucose 138 H Calcium 9.5
--- NOTE | 2025-02-10 13:12 | Discharge Summary ---
Date of Service February 10, 2025 Admission HPI Per Admitting Provider 79-year-old male with history of splenectomy, COPD, interstitial lung disease, congestive heart failure systolic type, diabetes type 2, hypertension, AAA, bladder cancer, BPH, other problems noted below presenting with shortness of breath with productive cough timesx 1 week. Patient follows with a curtain feller blindstitch at the [facility] for COPD and interstitial lung disease. He also follows with under the urology service for a recently diagnosed bladder cancer with plans for BCG treatment next week. As per patient, he has had shortness of breath and productive cough which worsened last week. Denies fevers or chills, sore throat, body aches, chest pain. Shortness of breath that worsened over the past few days to the point that he has been having difficulty walking around his home. At the ER, blood pressure was 131/88, heart rate 130, respiratory 28, 88% on room air, improving to 95% on 3 L by nasal cannula. Patient was noted to have bilateral wheezing, chest x-ray showed multifocal pneumonia with possible CHF pattern. He received Solu-Medrol IV,Neb treatment, ceftriaxone plus doxycycline at the ER. On exam, patient seen sitting up in bed, not in distress on 3 L of O2 via nasal cannula. States breathing has been somewhat improved since admission to the ER. Denies active shortness of breath, chest pain, nausea vomiting, fevers chills, or any other symptoms. Admission Exam Per Admitting Provider General- oriented x 3, not in distress, speaks in sentences with no effort or accessory muscle use Head- atraumatic Eyes- PERRL, EOMI, anicteric ENT- oropharynx clear Neck- supple, (+) mild JVD, no adenopathy, no thyromegaly; carotids +2/2, no bruits appreciated Lungs- positive positive somewhat diminished breath sounds bilaterally, no active wheezing or crackles Heart- mild tachycardia, regular rhythm; no murmur, no gallop, no rub appreciated Abdomen- normal bowel sounds, nondistended, soft, nontender, no masses or hepatosplenomegaly Extremities- mild lower extremity edema, no calf tenderness; peripheral pulses intact Neuro- alert, oriented x 3; CN 2-12 grossly intact; motor 5/5 bilaterally;sensation 100% on all extremities; no other gross focal neurologic deficits Skin- warm & dry Principal Diagnosis Acute hypoxic respiratory failure Multifocal pneumonia Atrial flutter Interstitial lung disease Chronic heart failure with mildly reduced EF Moderate aortic stenosis Discharge Data Allergies Allergy/AdvReac Type Severity Reaction Status Date / Time No Known Allergies Allergy Verified 01/26/22 09:59 Consultations 02/06/25 11:16 ED Decision to Admit Stat 02/06/25 12:03 Consult Pulmonology Routine 02/08/25 10:25 Consult Cardiology Routine Procedures Performed Laboratory Results WBC 8.23 K/ul (4.8-10.8) 02/10/25 06:22 RBC 4.71 M/uL (4.70-6.10) 02/10/25 06:22 Hgb 15.6 g/dL (14.0-18.0) 02/10/25 06:22 Hct 46.3 % (42.0-52.0) 02/10/25 06:22 MCV 98.3 fL (80.0-100.0) 02/10/25 06:22 MCH 33.1 pg (25.0-34.0) 02/10/25 06:22 MCHC 33.7 g/dL (32.0-36.0) 02/10/25 06:22 RDW Std Deviation 54.2 fL (36.4-46.3) H 02/10/25 06:22 RDW Coeff of Jacqueline 14.9 % (11.5-14.5) H 02/10/25 06:22 Plt Count 228 K/uL (130-400) 02/10/25 06:22 MPV 10.1 fL (9.4-12.4) 02/10/25 06:22 Immature Gran % (Auto) 0.5 % 02/07/25 06:21 Neut % (Auto) 76.5 % 02/07/25 06:21 Lymph % (Auto) 13.3 % 02/07/25 06:21 [place] % (Auto) 9.5 % 02/07/25 06:21 Eos % (Auto) 0.0 % 02/07/25 06:21 Baso % (Auto) 0.2 % 02/07/25 06:21 Neut # (Auto) 4.65 K/uL (1.40-6.50) 02/07/25 06:21 Lymph # (Auto) 0.81 K/uL (1.20-3.40) L 02/07/25 06:21 [place] # (Auto) 0.58 K/uL (0.11-0.59) 02/07/25 06:21 Eos # (Auto) 0.00 K/uL (0.00-0.50) 02/07/25 06:21 Baso # (Auto) 0.01 K/uL (0.00-0.20) 02/07/25 06:21 Immature Gran # (Auto) 0.03 K/uL (0.01-0.20) 02/07/25 06:21 ESR 68 mm/hr (0-20) H 02/08/25 06:15 PT 10.4 Seconds (9.0-12.0) 02/06/25 09:15 INR 1.0 (0.9-1.1) 02/06/25 09:15 VBG pH 7.41 (7.36-7.41) 02/06/25 12:45 VBG pCO2 41 mmHg (38-50) 02/06/25 12:45 VBG pO2 39 mmHg 02/06/25 12:45 VBG HCO3 26 mmol/L 02/06/25 12:45 VBG O2 Saturation 67.7 % 02/06/25 12:45 VBG Base Excess 1.2 mEq/L 02/06/25 12:45 Sodium 137 mmol/L (136-145) 02/10/25 06:22 Potassium 4.2 mmol/L (3.5-5.1) 02/10/25 06:22 Chloride 101 mmol/L (98-107) 02/10/25 06:22 Carbon Dioxide 27 mmol/L (21-32) 02/10/25 06:22 Anion Gap 9 (3-11) 02/10/25 06:22 BUN 19 mg/dl (6-23) 02/10/25 06:22 Creatinine 0.71 mg/dl (0.6-1.4) 02/10/25 06:22 Est Cr Clr Drug Dosing 101.4 ml/min 02/10/25 06:22 eGFR 93.91 02/10/25 06:22 BUN/Creatinine Ratio 26.8 (10-20) H 02/10/25 06:22 Glucose 138 mg/dl (70-99(Fasting)) H 02/10/25 06:22 POC Glucose 136 mg/dl (70-99) H 02/10/25 11:15 Estimat Average Glucose 151 mg/dl 02/07/25 06:21 Hemoglobin A1c 6.9 % (4.5-5.6) H 02/07/25 06:21 Lactate 1.3 mmol/L (0.4-2.0) 02/06/25 10:49 Calcium 9.5 mg/dl (8.6-10.3) 02/10/25 06:22 Magnesium 2.0 mg/dl (1.7-2.4) 02/10/25 06:22 Total Bilirubin 0.8 mg/dl (0.2-1.0) D 02/07/25 06:21 AST 16 U/L (13-39) 02/07/25 06:21 ALT 14 U/L (7-52) 02/07/25 06:21 Alkaline Phosphatase 55 U/L (34-104) 02/07/25 06:21 Troponin I High Sens 23.6 pg/ml (0-20) H 02/06/25 11:44 C-Reactive Protein 4.09 mg/dl (0-0.5) H 02/08/25 06:15 B-Natriuretic Peptide 359 pg/ml (0-100) H 02/08/25 06:15 Total Protein 7.1 gm/dl (6.0-8.3) 02/07/25 06:21 Albumin 3.9 gm/dl (3.4-5.0) 02/07/25 06:21 Globulin 3.2 gm/dl (2.5-4.0) 02/07/25 06:21 Albumin/Globulin Ratio 1.2 (0.9-2) 02/07/25 06:21 Lipase 8 U/L (11-82) L 02/06/25 09:15 Procalcitonin 0.04 ng/ml (0-0.5) 02/06/25 09:15 Urine Color Yellow 02/06/25 10:51 Urine Appearance Clear (Clear) 02/06/25 10:51 Urine pH 5.0 (4.5-7.5) 02/06/25 10:51 Ur Specific [place] 1.036 (1.000-1.030) H 02/06/25 10:51 Urine Protein 1+ (Negative) H 02/06/25 10:51 Urine Glucose (UA) 3+ (Negative) H 02/06/25 10:51 Urine Ketones 2+ (Negative) H 02/06/25 10:51 Urine Blood Negative (Negative) 02/06/25 10:51 Urine Nitrite Negative (Negative) 02/06/25 10:51 Urine Bilirubin Negative (Negative) 02/06/25 10:51 Urine Urobilinogen Negative (Negative) 02/06/25 10:51 Ur Leukocyte Esterase Negative (Negative) 02/06/25 10:51 Urine WBC (Auto) 0-5 /hpf (0-5) 02/06/25 10:51 Urine RBC (Auto) 0-2 /hpf (0-2) 02/06/25 10:51 U Hyaline Cast (Auto) 0-2 /lpf (0-2) 02/06/25 10:51 U Epithel Cells (Auto) 0-2 /hpf (0-2) 02/06/25 10:51 Urine Bacteria (Auto) None Seen (None Seen) 02/06/25 10:51 Urine Comment 02/06/25 10:51 Nasal Screen MRSA (PCR) Negative (Negative) 02/06/25 12:45 Adenovirus (PCR) Not Detected (NotDetected) 02/06/25 11:34 B. pertussis DNA (PCR) Not Detected (NotDetected) 02/06/25 11:34 B.parapertussis DNA PCR Not Detected (NotDetected) 02/06/25 11:34 C. pneumoniae DNA (PCR) Not Detected (NotDetected) 02/06/25 11:34 Coronavirus OC43 (PCR) Not Detected (NotDetected) 02/06/25 11:34 Coronavirus HKU1 (PCR) Not Detected (NotDetected) 02/06/25 11:34 Coronavirus 229E (PCR) Not Detected (NotDetected) 02/06/25 11:34 SARS-CoV-2 (PCR) NEGATIVE (Negative) 02/06/25 11:34 SARS-CoV-2 (PCR) Not Detected (NotDetected) 02/06/25 11:34 Coronavirus NL63 (PCR) Not Detected (NotDetected) 02/06/25 11:34 Human Metapneumovir PCR Not Detected (NotDetected) 02/06/25 11:34 Influenza Type A (PCR) Negative (Neg) 02/06/25 11:34 Influenza Type A (PCR) Not Detected (NotDetected) 02/06/25 11:34 Influenza Type B (PCR) Negative (Neg) 02/06/25 11:34 Influenza Type B (PCR) Not Detected (NotDetected) 02/06/25 11:34 M. pneumoniae (PCR) Not Detected (NotDetected) 02/06/25 11:34 Parainfluenza 1 (PCR) Not Detected (NotDetected) 02/06/25 11:34 Parainfluenza 2 (PCR) Not Detected (NotDetected) 02/06/25 11:34 Parainfluenza 3 (PCR) Not Detected (NotDetected) 02/06/25 11:34 Parainfluenza 4 (PCR) Not Detected (NotDetected) 02/06/25 11:34 RSV (RT-PCR) Negative (Neg) 02/06/25 11:34 RSV (PCR) Not Detected (NotDetected) 02/06/25 11:34 Entero/Rhino (PCR) Not Detected (NotDetected) 02/06/25 11:34 Impressions Chest X-Ray 02/08/25 06:00 EXAM: XR chest 1V portable CLINICAL HISTORY: follow up pulm edema TECHNIQUE: An X-ray image of the chest is obtained in AP projection. COMPARISON: 02/07/2025 FINDINGS: Pulmonary Parenchyma: Stationary course of the previously seen diffuse non homogeneous parenchyma with prominent bronchovascular markings. No pleural effusion/thickening. Heart and Mediastinum: Stable cardiomegaly and prominent aortic arch. No mediastinal widening or masses. No hilar or mediastinal lymphadenopathy. Bony Thorax: Bony thorax appears intact without fractures or deformities. Soft Tissues: Soft tissues overlying the chest wall are unremarkable. IMPRESSION: 1. Stable cardiomegaly. 2. Overall findings are of pulmonary edema (stable), clinical correlation and follow up is recommnded. Electronically signed by Walker Martin 02-08-2025 08:03 AM Chest CTA 02/08/25 15:58 Clinical history: Rule out pulmonary embolism Technique: Axial computed tomography images were obtained of the chest after the administration of intravenous contrast according to the CT angiogram protocol Findings: There is no definite sign of pulmonary embolism. There is a possible combination of mild pulmonary fibrosis and mild pulmonary edema, with multifocal predominantly peripheral interstitial opacities as well as areas of thickening of the interlobular septa and scattered groundglass opacities. There is no pneumothorax. There are bilateral small to moderate sized pleural effusions There are mildly enlarged mediastinal lymph nodes, measuring up to 1.3 cm in short axis. The thoracic aorta appears unremarkable with no sign of aneurysm or dissection. There is no pericardial effusion. There is coronary atherosclerosis There is a 1.9 cm cyst in the medial segment of the left hepatic lobe. No fracture is seen. No focal osseous lesion is evident Impression: 1. No definite sign of pulmonary embolism 2. Bilateral pleural effusions 3. Suspected combination of mild pulmonary fibrosis and mild pulmonary edema 4. Mild mediastinal adenopathy 5. Hepatic cyst 6. Coronary atherosclerosis Electronically signed by Bahman Felix 02-08-2025 4:17 PM Ordered Studies 02/08/25 15:58 CT angio chest PE protocol Urgent Hospital Course (1) Acute respiratory failure with hypoxia: (2) Multifocal pneumonia: (3) Systolic CHF, acute on chronic: (4) COPD exacerbation: 79-year-old male with history of splenectomy, COPD, interstitial lung disease, congestive heart failure systolic type, diabetes type 2, hypertension, AAA, bladder cancer, BPH, other problems noted below presenting with shortness of breath with productive cough timesx 1 week. Acute hypoxic respiratory failure secondary to multifocal pneumonia in the setting of interstitial lung disease, with COPD CHF likely contributing as well --CXR:Cardiomegaly with evidence of congestive failure. There are multifocal asymmetric bilateral airspace opacities. This could represent pulmonary edema and/or multifocal pneumonia. Clinical correlation will be required and radiographic follow-up to resolution is recommended. This is superimposed on changes of chronic interstitial lung disease. No large pleural effusion is identified. --Chest CT: No definite sign of pulmonary embolism. Bilateral pleural effusions . Suspected combination of mild pulmonary fibrosis and mild pulmonary edema . Mild mediastinal adenopathy . Hepatic cyst . Coronary atherosclerosis -- Respiratory Biofire negative --Urine for Legionella pending --Blood cultures negative to date --Normal procalcitonin --Elevated ESR, CRP -- Continue cefepime, doxycycline>> transition to oral antibiotics to complete the course Continue nebs Weaned off of supplemental oxygen Appreciate pulmonology input Continue pulmonary hygiene Needs follow-up with pulmonology on discharge Needs sleep study as outpatient 2 step: Did not qualify for supplemental oxygen Plan to be discharged home today Atrial flutter Continue digoxin Continue metoprolol succinate 50 mg twice a day On Eliquis for anticoagulation Monitor and replete electrolytes as needed May need cardioversion eventually if spontaneously does not convert to sinus rhythm as outpatient after 4 weeks of anticoagulation Appreciate cardiology input Needs follow-up with cardiology on discharge Suspected acute on chronic systolic heart failure Valvular heart disease--moderate aortic stenosis BNP elevated at 300s --ECHO: Mild diffuse left ventricular hypokinesis. Mild concentric left ventricular hypertrophy. EF 45-49%. Moderate valvular aortic stenosis. When compared to prior echo, no significant change other than tachycardia. 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 Monitor blood glucose levels Hypertension- continue losartan and metoprolol as above AAA-continue rosuvastatin, aspirin BPH-continue finasteride. Monitor for urinary retention Bladder cancer- recent diagnosis, follows with not with any physicians group urology service, plan for BCG treatment next week. Needs follow-up with urology on discharge GERD- Continue PPI Osteoporosis, osteoarthritis H/O Splenectomy DVT prophylaxis Eliquis CODE STATUS Full code Disposition Home Total Time Total Time Spent Total Time Spent (In Minutes): 53 minutes Discharge Plan Discharge Items Patient Disposition: Home - Self-Care Reason For Visit: HYPOXIC RESPIRATORY FAILURE Discharge Diagnosis: Acute hypoxic respiratory failure Multifocal pneumonia Atrial flutter Interstitial lung disease Chronic heart failure with mildly reduced EF Moderate aortic stenosis Condition on Discharge: Fair Activity: Per Instructions section Exercise/Sports: Wait until after follow-up appointment Non-emergency contact: Primary Care Provider, Senior Chemical Process Engineer and Manager Part Call non-emergency contact if: you have any medication questions, your symptoms worsen, your pain is concerning for you and you have a fever Follow-up/Referrals: Van Pang, [Primary Care Provider] - Diet: Carb Consistent or DM2 Addtl Attending Provider Instructions: -- Follow-up with your primary care physician in 1 week -- Follow-up with your assistant kitchen manager as recommended. Office will call you with appointment --Follow-up with the curtain feller blindstitch in 2-3 weeks -- Your final blood cultures and urine for Legionella test is pending at the time of discharge. Follow-up with your physician for results. --Complete antibiotic course as prescribed. -- Your curtain feller blindstitch recommends outpatient sleep study (polysomnography) to rule out sleep apnea. Seek immediate medical attention if your symptoms reoccur or worsen Please review medication list provided on discharge for any medication changes as instructed. Please call if you have any questions or problems. You can reach a [facility] hospitalist on duty at [facility] 24 hours a day by calling [phone] [facility] Engine Generator Assembler Provider Instructions: Call your Primary Care doctor if any of the following symptoms or problems start or get worse: * Shortness of breath or difficulty breathing * Wake up at night short of breath * Chest pain * Cough * Swelling of your hands, feet, or legs * More fatigued or tired with your normal activity * Palpitations - sudden fast heart beats WEIGHT * Weigh yourself every morning after using the bathroom. * Use the same scale. * Wear the same amount of clothing. * Write your weight down on a chart. * Call your Primary Care doctor if you gain more than 2-3 pounds in 1-2 days. MEDICATIONS * Use this discharge instruction sheet for medication instructions. * Take your medications at the time your doctor ordered. * Do not skip a dose of your medicines. * If you miss a dose of medicine, take it as soon as possible, but DO NOT DOUBLE A DOSE. * Read your medicine information when you get home. * Know all of the side effects of your medicine. If in doubt, ask your pharm acist * Call your Primary Care doctor's office if you have any side effects. * Be sure all of your doctors know what medicine and herbs you take (including cold, flu, and herbal medicine). Take the following with you to your follow-up doctor appointments: * Weight Chart * Medication List * List of questions Do not drink excessive alcohol, beer or wine. Pending Studies at Discharge: Yes Studies:: Blood culture, urine for Legionella Stand-Alone Forms: My [facility], Smoking Cessation Medications and DC Order Prescriptions: New doxycycline hyclate 100 mg Capsule 100 mg PO BID Qty: 10 0RF metoprolol succinate 50 mg Tablet Extended Release 24 Hr 50 mg PO BID Qty: 60 1RF digoxin [Digitek] 125 mcg (0.125 mg) Tablet 0.125 mg PO DAILY@1600 Qty: 30 1RF Eliquis 5 mg Tablet 5 mg PO BID Qty: 60 1RF cefuroxime axetil 500 mg tablet 500 mg PO BID Qty: 10 0RF Continued finasteride 5 mg tablet 5 mg PO DAILY Qty: 90 3RF metformin [Glucophage] 500 mg Tablet 1,000 mg PO BID aspirin 81 mg Tablet,Delayed Release (Dr/Ec) 81 mg PO DAILY rosuvastatin [Crestor] 20 mg Tablet 20 mg PO DAILY Jardiance 10 mg PO DAILY glipizide 5 mg PO DAILY losartan 25 mg PO DAILY omeprazole 20 mg PO DAILY Discharge Orders: Discharge Order (Routine); Ordered 02/10/25 Ordered By: Lobo Franco/Other Patient Handouts: Managing Type 2 Diabetes Admission Data Admit Date/Time: 02/06/25 12:02 Attending Provider: Lobo Costa Admit Provider: Zain Shirley Primary Care Provider: Van Pang Other Providers: Zain Shirley; Reji Hansen; Kade Almonte
[2025-02-10 14:14] VITALS: PULSE 105; RESP 18; O2SAT 90
== END 2025-02-10 15:07 | disposition home or self-care (01) | DRG 189 ==
LOC: ED 08:50 → 2S 12:02 → SUATTDRO 12:02 → 2S 17:55